=== PATIENT | female | born 1970 | race Caucasian/White ===

== ENCOUNTER 2020-07-30 13:34 | Observation (INO) | payer MEDICAID, SELFPAY ==
[2020-07-30 13:35] VITALS: BP 173/93; PULSE 78; RESP 18; TEMP 36.6; O2SAT 100; BMI 29.2
--- NOTE | 2020-07-30 13:47 | ED.VIS.GEN ---
History of Present Illness Chief Complaint: Substance Abuse Detail of Chief Complaint: Alcoholism and depression Informant: Patient Onset: Month(s) Context: - - Please read HPI Timing: Intermittent - Please read HPI Quality: Beverage of choice is beer Location: Not applicable Current Severity: Moderate Maximum Severity: Severe Worsened by: Unemployment, no housing, unable to see children unsupervised Relieved by: Nothing Associated Symptoms: Depression without suicidal ideation Narrative: Patient is a 50-year-old woman who was sent to the emergency department by Baldemar Davidson at [facility]. She states she began drinking at the age of 16. She was able to stop on her own October 22, 2019. She resumed drinking July 13. She has been drinking heavily the past 5 days. Her last drink was 1 hour prior to presentation. She is frustrated because of Covid . She states it is difficult for her to have housing, job and to see her children. She states she sees her children once a week. She has supervised visitation only. She states this is because she has no housing. She denies fever, chills or night sweats. Denies cardiac respiratory symptoms. Denies infectious symptoms. She denies nausea, vomit diarrhea. Denies black or maroon stool. Denies bruising easily. She denies neurologic symptoms. She denies urologic symptoms. Prior similar symptoms: Yes Recent Illness/Hospitalization: No - Past Medical History (1) History of depression Status: Acute (2) Alcoholism /alcohol abuse Status: Acute Past Medical History - Allergies and Home Meds Allergies/Adverse Reactions: Allergies No Known Allergies Allergy (Verified 07/30/20 13:37) Prior records reviewed: Yes Surgical History: noncontributory Lives: Alone Smoking Status: Current every day smoker Alcohol: Heavy Drugs: None Review of Systems General: Reports: Malaise. Denies: Chills, Fever, Subjective, Sweats, Weight loss, - Eyes: Denies: Visual changes - bilaterally, Blurred Vision - bilaterally ENT: Denies: Rhinorrhea, Sore throat Cardiovascular: Denies: Chest pain, Palpitations Respiratory: Denies: Dyspnea, Cough, Dyspnea on exertion Gastrointestinal: Denies: Abdominal pain, Nausea, Vomiting, Diarrhea, Melena, Hematochezia Genitourinary: Denies: Dysuria, Hematuria, Frequency Musculoskeletal: Denies: Myalgias, Arthralgias, Neck pain, Back pain, Swelling, Extremity Pain, -, - Neurological: Denies: Headache, Weakness Psych: Reports: Depression. Denies: Suicidal thoughts, Suicidal ideations Hematologic: Denies: Easy bruising, Easy bleeding Physical Exam Vital Signs/Narrative: Vital Signs Temp Pulse Resp BP Pulse Ox 07/30/20 13:35 97.9 F 78 18 173/93 H 100 General: Well nourished, Well developed Head: Normocephalic, Atraumatic Eyes: Perrl, EOMI. Negative for: Pale conjunctiva, Scleral icterus ENT: Moist mucous membranes, No rhinorrhea Neck: Supple, Nontender, No lymphadenopathy, No JVD Cardiovascular: Regular rate, Regular rhythm, No murmurs, Normal S1, Normal S2 Respiratory: No distress, CTA bilaterally, Chest nontender Abdomen: Soft, Nontender, Nondistended, Normal bowel sounds Extremities: Nontender, No edema Skin: Normal color, No rash Neurological: Alert, Oriented x3, Cranial nerves II-XII grossly intact, Normal Strength, Normal Sensation Psychological: Depressed, Tearful Diagnostic/Tx/Re-eval - Medical Decision Making Labs for addiction medicine admission were ordered. Case was discussed with case management. Plan is to call hospitalist for admission. Test results are pending. Test results will be followed up by hospitalist. Plan is admission for alcoholism/detox. ED Disposition - Plan for ED Patient: Disposition: Home or Assisted Living Diagnosis: Alcoholism /alcohol abuse, Admitted to alcohol detoxification center
[2020-07-30] MEDS: Ondansetron ODT 4 MG Tablet PO (14:11)
[2020-07-30 14:14] VITALS: BP 170/92; PULSE 92; RESP 16; TEMP 36.6; O2SAT 98
[2020-07-30 14:15] VITALS: BMI 29.2
--- NOTE | 2020-07-30 14:25 | CM.ED ---
SOCIAL WORK Informant: Dr. Farmer Reason for Consult: Substance Abuse Chief Compliant: Patient requesting detox from alcohol Met with patient in room. Introduced role and reason for referral. Patient states is connected with [facility] and is living in sober living housing. Patient reports relapsed July 13 and informed staff at [facility]. Patient reports at that time, only had one drink. Patient states over the last 5 days has been binge drinking. Patient reports last drink was 3 hours ago. Patient states, once I throw up I feel better, then I drink again. Patient requesting detox. Collaboration with Dr. Farmer, hospitalist has been paged. Call to [facility] Treatment Navigator to update on patient. Per Jahaira, will be in tomorrow to complete assessment. 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
[2020-07-30 14:31] LABS: Amphetamine Urine VISTA NEGATIVE (<1000 ng/mL); Barbiturate Urine VISTA NEGATIVE (< 200 ng/mL); Benzodiazepine Urine VISTA NEGATIVE (< 200 ng/mL); Cocaine Urine VISTA NEGATIVE (< 300 ng/mL); Ecstacy Urine VISTA NEGATIVE (< 500 ng/mL); Methadone Urine VISTA NEGATIVE (< 300 ng/mL); PCP Urine VISTA NEGATIVE (< 25 ng/mL); THC Urine VISTA NEGATIVE (< 50 ng/mL); Vista UDS pH Range 6
[2020-07-30 14:36] LABS: ALB/GLOB Ratio 1.2 RATIO (0.9-2.4); AST(SGOT) 155 U/L (15-37); Alanine Aminotransfer ALT/SGPT 95 U/L (13-56); Albumin, Serum 4.2 g/dL (3.2-5.0); Alkaline Phosphatase 113 U/L (45-117); Anion Gap 7 (5-15); BUN 15 mg/dL (7-18); BUN/Creat Ratio 18.9 RATIO (10-20); Calcium,Total 8.7 mg/dL (8.5-10.1); Chloride 105 mmol/L (98-107); Creatinine, Serum 0.79 mg/dL (0.55-1.02); EST Glomerular Filtration Rate 82 mL/min (>60); Est Glom Filt Rate - Afr Amer 99 mL/min (>60); Estimated Creatinine Clearance 74.39 ml/min; Globulin 3.4 g/dL (2.2-4.2); Glucose 148 mg/dL (74-106); Potassium 3.5 mmol/L (3.5-5.1); Protein, Total 7.6 g/dL (6.4-8.2); Sodium Level 138 mmol/L (136-145)
--- NOTE | 2020-07-30 14:36 | PCM.HP.STD ---
<Riley Cameron PA - Last Filed: 07/30/20 14:36> Problem List (1) Alcohol withdrawal Status: Acute (2) Bipolar 1 disorder Status: Chronic History of Present Illness Date of Admission: 07/30/20 Chief Complaint: alcohol withdrawal The patient is a 50 year old F with pmhx of Bipolar disorder and alcoholism who presented to the emergency room with alcohol withdrawal requesting assistance with detox. The patient last went through detox in October of this year in [place] and had remained sober until approximately 5 days ago. She states she has been on a simental for about 5 days. She states she starts drinking as soon as she wakes up, drinks beer or gin and tonics, all day long. She cannot estimate how much she is currently drinking. Currently she has ongoing nausea and vomiting, mild upper extremity tremor. She has been an alcoholic since she was a teenager. She has not been smoking much due to nausea. She usually smokes a pack per day. She denies other drug use. [] Past Medical History Past Medical History (Chronic Problems): Chronic Problems Bipolar 1 disorder (Chronic) Allergies No Known Allergies Allergy (Verified 07/30/20 13:37) Home Medications: Ambulatory Orders Medication Instructions Recorded Carbamazepine [Tegretol] 200 mg PO BID 07/30/20 traZODone [Desyrel] 100 mg PO QHS 07/30/20 Surgical History: noncontributory Psychiatric History: No pertinent psych hx [employer] History: No pertinent [employer] history Lives: Alone Smoking Status: Current every day smoker Tobacco Use: Cigarettes Alcohol: Heavy Drugs: None - *Family History Paternal History Items: - - Denies history cancer, heart disease, diabetes, stroke Maternal History Items: - - Denies history of heart disease, cancer, diabetes, stroke Review of Systems Constitutional: Denies: Chills, Fever, Weight Change HEENT: Denies: Head Aches, Sinus Congestion, Sinus Drainage Cardiovascular: Denies: Chest Pain, Palpitations Respiratory: Denies: Cough, Shortness of breath at rest, Sputum production Gastrointestinal: Reports: Nausea, Vomiting. Denies: Abdominal Pain Genitourinary: Denies: Dysuria Musculoskeletal: Denies: Joint Pain, Joint Tenderness Skin: Denies: Rash, Wounds Neurological: Reports: Tremor. Denies: Focal weakness, Numbness, Tingling Psychiatric: Denies: Anxiety, Depression, Homicidal Ideations, Suicidal Ideations Hematologic/ Lymphatic: Denies: Easy Bruising, Easy Bleeding VTE Information - Inpt Only VTE Present on Admission: No VTE Mechan Device Prophylaxis: None VTE Pharm Prophylaxis ordered?: Yes Patient Problems: Active and Suspected Problems History of depression (Acute) Alcoholism /alcohol abuse (Acute) Admitted to alcohol detoxification center (Acute) Alcohol withdrawal (Acute) - Physical Exam Vitals/I&O's: Vital Signs Temp Pulse Resp BP Pulse Ox 97.8 F 92 16 170/92 H 98 07/30/20 14:14 07/30/20 14:14 07/30/20 14:14 07/30/20 14:14 07/30/20 14:14 Oxygen Delivery Method Room Air Weight: 170 lb Body Mass Index (BMI) 29.2 General: Alert, Oriented x3, Cooperative HEENT: Atraumatic, PERRLA, EOMI, Normocephalic Neck: Supple, No JVD, Negative Carotid Bruits Lungs: Clear to auscultation, Normal air movement Cardiovascular: Regular rate, No murmurs Abdomen: Bowel Sounds Present, Soft, Non Tender Extremities: No edema, Capillary Refill Less than 3 Seconds Skin: No rashes, No breakdown Musculoskeletal: No Tenderness to Palpation of Joints or Extremities Neurological: Cranial nerves II-XII grossly intact, - - mild upper ext resting tremor Psych/Mental Status: Normal Affect, Appropriate, Alert and oriented to time, place, person, mood and affect Laboratory Results 07/30/20 14:00: Sodium 138, Potassium 3.5, Chloride 105, Carbon Dioxide 26.0, Anion Gap 7, BUN 15, Creatinine 0.79, Estim Creat Clear Calc 74.39, Est GFR (MDRD) Af Amer 99, Est GFR (MDRD) Non-Af 82, BUN/Creatinine Ratio 18.9, Glucose 148 H, Calcium 8.7, Total Bilirubin 0.80, AST 155 H, ALT 95 H, Alkaline Phosphatase 113, Total Protein 7.6, Albumin 4.2, Globulin 3.4, Albumin/Globulin Ratio 1.2 07/30/20 14:00: Ethyl Alcohol Pending 07/30/20 14:00: Urine Opiates Screen NEGATIVE, Urine Methadone Screen NEGATIVE, Ur Barbiturates Screen NEGATIVE, Ur Phencyclidine Scrn NEGATIVE, Ur Amphetamines Screen NEGATIVE, U Methamphetamin-MDMA NEGATIVE, U Benzodiazepines Scrn NEGATIVE, Urine Cocaine Screen NEGATIVE, U Cannabinoids Screen NEGATIVE, Ur Drug Screen Comment Assessment/Plan All Active Problems History of depression (Acute) Alcoholism /alcohol abuse (Acute) Admitted to alcohol detoxification center (Acute) Alcohol withdrawal (Acute) 1. Alcoholism with withdrawal - drinking heavily x 5 days. Sober since Oct 2019 otherwise. Current sx include tremor, nausea, vominting. no hx withdrawal seizure, ICU admissions. Sometimes she has auditory hallucinations. No drug use. 2. Bipolar disorder - continue home meds. 3. Nicotine abuse - 1 ppd smoker. provide patch. DVT ppx: early ambulation This patient was seen by Riley Cameron PA-C under the supervision of Doctor Cesario. <Gil Nassar F - Last Filed: 07/30/20 15:23> History of Present Illness The patient is a 50 year old F [] Past Medical History Allergies No Known Allergies Allergy (Verified 07/30/20 13:37) - Physical Exam Vitals/I&O's: Vital Signs Temp Pulse Resp BP Pulse Ox 98.7 F 62 16 145/70 H 100 07/30/20 14:51 07/30/20 14:51 07/30/20 14:51 07/30/20 14:51 07/30/20 14:51 Oxygen Delivery Method Room Air Weight: 171 lb 11.841 oz Body Mass Index (BMI) 29.5 Laboratory Results 07/30/20 14:00: Sodium 138, Potassium 3.5, Chloride 105, Carbon Dioxide 26.0, Anion Gap 7, BUN 15, Creatinine 0.79, Estim Creat Clear Calc 74.39, Est GFR (MDRD) Af Amer 99, Est GFR (MDRD) Non-Af 82, BUN/Creatinine Ratio 18.9, Glucose 148 H, Calcium 8.7, Total Bilirubin 0.80, AST 155 H, ALT 95 H, Alkaline Phosphatase 113, Total Protein 7.6, Albumin 4.2, Globulin 3.4, Albumin/Globulin Ratio 1.2 07/30/20 14:00: Ethyl Alcohol 81.0 07/30/20 14:00: Urine Opiates Screen NEGATIVE, Urine Methadone Screen NEGATIVE, Ur Barbiturates Screen NEGATIVE, Ur Phencyclidine Scrn NEGATIVE, Ur Amphetamines Screen NEGATIVE, U Methamphetamin-MDMA NEGATIVE, U Benzodiazepines Scrn NEGATIVE, Urine Cocaine Screen NEGATIVE, U Cannabinoids Screen NEGATIVE, Ur Drug Screen Comment Current Medications Dicyclomine HCl (Dicyclomine 10 Mg Capsule) 20 mg PO Q6H PRN PRN PRN Reason: abdominal discomfort Last Admin: 07/30/20 15:15 Dose: 20 mg Documented by: Folic Acid (Folic Acid 1 Mg Tablet) 1 mg PO DAILY@0800 [facility] Gabapentin (Gabapentin 300 Mg Capsule) 300 mg PO Q8H PRN PRN PRN Reason: moderate to severe anxiety Last Admin: 07/30/20 15:14 Dose: 300 mg Documented by: Hydroxyzine Pamoate (Hydroxyzine Kayley 25 Mg Capsule) 50 mg PO Q4H PRN PRN PRN Reason: mild anxiety Loperamide HCl (Loperamide 2 Mg Capsule) 2 mg PO Q4H PRN PRN PRN Reason: LOOSE STOOLS Ondansetron HCl (Ondansetron 8 Mg Tablet) 8 mg PO Q8H PRN PRN PRN Reason: NAUSEA Phenobarbital (Phenobarbital 32.4 Mg Tablet) 97.2 mg PO Q4H [facility]; Taper Stop: 08/03/20 22:59 Last Admin: 07/30/20 15:14 Dose: 97.2 mg Documented by: Sodium Chloride (0.9% Saline Lock 10 Ml Syringe) 10 - 40 ml IV UD PRN PRN Reason: SALINE FLUSH Thiamine HCl (Thiamine Hydrochloride 100 Mg Tablet) 100 mg PO DAILYCM [facility] Trazodone HCl (Trazodone 100 Mg Tablet) 100 mg PO QHS PRN PRN Reason: INSOMNIA Addendum: Dr. Nassar I personally examined the patient and reviewed the chart. I agree with the above. 50-year-old female who has been an alcoholic since a teenager presents after going on a 5-day simental. She was in detox in October and had been clean since however she also history of her children amputated toe it is been difficult for her to be able to even see her kids, she only sees him once a week and for supervised visitation only. She started drinking heavily about 5 days ago and she can even quantify how much but she says it starts as soon as she wakes up until she goes to bed. She called [facility] prior to arrival and they recommended that she come in for detox. We will plan for alcohol detox and discharge to [facility] when stable. Inpatient E&M: 44231 Init Hosp L2
[2020-07-30 14:50] VITALS: BMI 29.5
[2020-07-30 14:51] VITALS: BP 145/70; PULSE 62; RESP 16; TEMP 37.1; O2SAT 100
--- NOTE | 2020-07-30 14:59 | NURSING ---
pt states i have been on a simental since Sunday- i cant really tell you what i was drinking or how much i have been drinking because i either had a drink in my hand or was passed out. pt states [facility]. states i haven't had any of my mood stabilizers either in the last 5 days.
[2020-07-30] MEDS: Phenobarbital 32.4 MG Tablet PO ×3 (15:14→22:36)
[2020-07-30] MEDS: Gabapentin 300 MG Capsule PO (15:14)
[2020-07-30] MEDS: Dicyclomine 10 MG Capsule 20 MG PO ×2 (15:15→22:35)
[2020-07-30 15:53] LABS: Carbamazepine (Tegretol) 0.7 ug/mL (4.0-12.0)
[2020-07-30 17:25] VITALS: BP 125/81; PULSE 68; RESP 18; TEMP 36.7; O2SAT 99
[2020-07-30] MEDS: proMETHazine 25 MG/ML Syringe 6.25 MG IM (17:28)
[2020-07-30 22:00] VITALS: BP 141/86; PULSE 80; RESP 16; TEMP 37; O2SAT 97
[2020-07-30] MEDS: traZODone 100 MG Tablet PO (22:36)
[2020-07-31 02:30] VITALS: BP 134/79; PULSE 55; RESP 16; TEMP 37.1; O2SAT 98
[2020-07-31] MEDS: Phenobarbital 32.4 MG Tablet PO ×6 (02:38→22:36)
[2020-07-31 06:33] VITALS: BP 144/92; PULSE 58; RESP 16; TEMP 36.4; O2SAT 98
[2020-07-31 09:20] VITALS: BP 127/84; PULSE 72; RESP 18; TEMP 37; O2SAT 98
[2020-07-31] MEDS: Folic Acid 1 MG Tablet PO (09:21)
[2020-07-31] MEDS: Thiamine Hydrochloride 100 MG Tablet PO (09:22)
--- NOTE | 2020-07-31 10:49 | PCM.PN.HOSP ---
<Riley Cameron PA - Last Filed: 07/31/20 10:49> Patient Problems: Active and Suspected Problems History of depression (Acute) Alcoholism /alcohol abuse (Acute) Admitted to alcohol detoxification center (Acute) Alcohol withdrawal (Acute) Reason for Visit: alcohol withdrawal Subjective: nausea and tremor resolved. pt c/o sweating episodes. Otherwise doing well no issues. Vitals/I&O's: Vital Signs Temp Pulse Resp BP Pulse Ox 98.6 F 72 18 127/84 H 98 07/31/20 09:20 07/31/20 09:20 07/31/20 09:20 07/31/20 09:20 07/31/20 09:20 Oxygen Delivery Method Room Air Weight: 171 lb 11.841 oz Body Mass Index (BMI) 29.5 General: Alert, Oriented x3, Cooperative HEENT: Atraumatic, PERRLA, EOMI, Normocephalic Neck: Supple, No JVD, Negative Carotid Bruits Lungs: Clear to auscultation, Normal air movement Cardiovascular: Regular rate, No murmurs Abdomen: Bowel Sounds Present, Soft, Non Tender Extremities: No edema, Capillary Refill Less than 3 Seconds Skin: No rashes, No breakdown Musculoskeletal: No Tenderness to Palpation of Joints or Extremities Neurological: Cranial nerves II-XII grossly intact Psych/Mental Status: Normal Affect, Appropriate, Alert and oriented to time, place, person, mood and affect Laboratory Results 07/30/20 14:00: Sodium 138, Potassium 3.5, Chloride 105, Carbon Dioxide 26.0, Anion Gap 7, BUN 15, Creatinine 0.79, Estim Creat Clear Calc 74.39, Est GFR (MDRD) Af Amer 99, Est GFR (MDRD) Non-Af 82, BUN/Creatinine Ratio 18.9, Glucose 148 H, Calcium 8.7, Total Bilirubin 0.80, AST 155 H, ALT 95 H, Alkaline Phosphatase 113, Total Protein 7.6, Albumin 4.2, Globulin 3.4, Albumin/Globulin Ratio 1.2 07/30/20 14:00: Ethyl Alcohol 81.0 07/30/20 14:00: Urine Opiates Screen NEGATIVE, Urine Methadone Screen NEGATIVE, Ur Barbiturates Screen NEGATIVE, Ur Phencyclidine Scrn NEGATIVE, Ur Amphetamines Screen NEGATIVE, U Methamphetamin-MDMA NEGATIVE, U Benzodiazepines Scrn NEGATIVE, Urine Cocaine Screen NEGATIVE, U Cannabinoids Screen NEGATIVE, Ur Drug Screen Comment 07/30/20 14:00: Carbamazepine 0.7 L Current Medications Dicyclomine HCl (Dicyclomine 10 Mg Capsule) 20 mg PO Q6H PRN PRN PRN Reason: abdominal discomfort Last Admin: 07/30/20 22:35 Dose: 20 mg Documented by: Folic Acid (Folic Acid 1 Mg Tablet) 1 mg PO DAILY@0800 [facility] Last Admin: 07/31/20 09:21 Dose: 1 mg Documented by: Gabapentin (Gabapentin 300 Mg Capsule) 300 mg PO Q8H PRN PRN PRN Reason: moderate to severe anxiety Last Admin: 07/30/20 15:14 Dose: 300 mg Documented by: Hydroxyzine Pamoate (Hydroxyzine Kayley 25 Mg Capsule) 50 mg PO Q4H PRN PRN PRN Reason: mild anxiety Loperamide HCl (Loperamide 2 Mg Capsule) 2 mg PO Q4H PRN PRN PRN Reason: LOOSE STOOLS Nicotine (Nicotine 21 Mg Patch) 21 mg TD DAILY [facility] Last Admin: 07/31/20 09:21 Dose: 21 mg Documented by: Ondansetron HCl (Ondansetron 8 Mg Tablet) 8 mg PO Q8H PRN PRN PRN Reason: NAUSEA Phenobarbital (Phenobarbital 32.4 Mg Tablet) 97.2 mg PO Q4H [facility]; Taper Stop: 08/03/20 22:59 Last Admin: 07/31/20 06:34 Dose: 97.2 mg Documented by: Sodium Chloride (0.9% Saline Lock 10 Ml Syringe) 10 - 40 ml IV UD PRN PRN Reason: SALINE FLUSH Thiamine HCl (Thiamine Hydrochloride 100 Mg Tablet) 100 mg PO DAILYCM [facility] Last Admin: 07/31/20 09:22 Dose: 100 mg Documented by: Trazodone HCl (Trazodone 100 Mg Tablet) 100 mg PO QHS PRN PRN Reason: INSOMNIA Last Admin: 07/30/20 22:36 Dose: 100 mg Documented by: STROKE Vital Signs/Narrative: Vital Signs Temp Pulse Resp BP Pulse Ox 07/31/20 09:20 98.6 F 72 18 127/84 H 98 Medical Necessity - Tobacco Use Smoking Status: Current every day smoker Tobacco Use: Cigarettes Assessment/Plan All Active Problems History of depression (Acute) Alcoholism /alcohol abuse (Acute) Admitted to alcohol detoxification center (Acute) Alcohol withdrawal (Acute) 1. Alcoholism with withdrawal - drinking heavily x 5 days. Sober since Oct 2019 otherwise. Current sx sweating episodes. no hx withdrawal seizure or ICU admissions. 2. Bipolar disorder - continue home meds. 3. Nicotine abuse - 1 ppd smoker. provide patch. DVT ppx: early ambulation This patient was seen by Riley Cameron PA-C under the supervision of Doctor Raman. <Jia Camargo - Last Filed: 07/31/20 14:59> Vitals/I&O's: Vital Signs Temp Pulse Resp BP Pulse Ox 98.6 F 72 18 127/84 H 98 07/31/20 09:20 07/31/20 09:20 07/31/20 09:20 07/31/20 09:20 07/31/20 09:20 Oxygen Delivery Method Room Air Weight: 171 lb 11.841 oz Body Mass Index (BMI) 29.5 Laboratory Results 07/30/20 14:00: Carbamazepine 0.7 L Current Medications Dicyclomine HCl (Dicyclomine 10 Mg Capsule) 20 mg PO Q6H PRN PRN PRN Reason: abdominal discomfort Last Admin: 07/30/20 22:35 Dose: 20 mg Documented by: Folic Acid (Folic Acid 1 Mg Tablet) 1 mg PO DAILY@0800 [facility] Last Admin: 07/31/20 09:21 Dose: 1 mg Documented by: Gabapentin (Gabapentin 300 Mg Capsule) 300 mg PO Q8H PRN PRN PRN Reason: moderate to severe anxiety Last Admin: 07/30/20 15:14 Dose: 300 mg Documented by: Hydroxyzine Pamoate (Hydroxyzine Kayley 25 Mg Capsule) 50 mg PO Q4H PRN PRN PRN Reason: mild anxiety Loperamide HCl (Loperamide 2 Mg Capsule) 2 mg PO Q4H PRN PRN PRN Reason: LOOSE STOOLS Nicotine (Nicotine 21 Mg Patch) 21 mg TD DAILY [facility] Last Admin: 07/31/20 09:21 Dose: 21 mg Documented by: Ondansetron HCl (Ondansetron 8 Mg Tablet) 8 mg PO Q8H PRN PRN PRN Reason: NAUSEA Phenobarbital (Phenobarbital 32.4 Mg Tablet) 97.2 mg PO Q4H [facility]; Taper Stop: 08/03/20 22:59 Last Admin: 07/31/20 11:49 Dose: 97.2 mg Documented by: Sodium Chloride (0.9% Saline Lock 10 Ml Syringe) 10 - 40 ml IV UD PRN PRN Reason: SALINE FLUSH Thiamine HCl (Thiamine Hydrochloride 100 Mg Tablet) 100 mg PO DAILYCM [facility] Last Admin: 07/31/20 09:22 Dose: 100 mg Documented by: Trazodone HCl (Trazodone 100 Mg Tablet) 100 mg PO QHS PRN PRN Reason: INSOMNIA Last Admin: 07/30/20 22:36 Dose: 100 mg Documented by: Assessment/Plan Patient seen by Riley Cameron PA-C under my supervision. Patient seen and examined. She has no complaints. She has been managed for acute alcohol withdrawal. Review of symptoms otherwise negative. O/E: Vital Signs Temp Pulse Resp BP Pulse Ox 98.6 F 72 18 127/84 H 98 07/31/20 09:20 07/31/20 09:20 07/31/20 09:20 07/31/20 09:20 07/31/20 09:20 General: Alert, Oriented x3, Cooperative HEENT: Atraumatic, PERRLA, EOMI, Normocephalic Neck: Supple, No JVD, Negative Carotid Bruits Lungs: Clear to auscultation, Normal air movement Cardiovascular: Regular rate, No murmurs Abdomen: Bowel Sounds Present, Soft, Non Tender Extremities: No edema, Capillary Refill Less than 3 Seconds Skin: No rashes, No breakdown Musculoskeletal: No Tenderness to Palpation of Joints or Extremities Neurological: Cranial nerves II-XII grossly intact Psych/Mental Status: Normal Affect, Appropriate, Alert and oriented to time, place, person, mood and affect Continue on alcohol withdrawal protocol with phenobarbital. Monitor CIWA score. Thiamine, folic acid and Multivite. Rest as per Riley Cameron PA-C's notes which I have reviewed and endorsed. Inpatient E&M: 41329 Subs Hosp L2
[2020-07-31 15:15] VITALS: BP 160/99; PULSE 69; RESP 16; TEMP 36.8; O2SAT 98
[2020-07-31 18:50] VITALS: BP 136/89; PULSE 91; RESP 16; TEMP 36.7; O2SAT 100
[2020-07-31 21:20] VITALS: BP 136/89; PULSE 80; RESP 18; TEMP 36.8; O2SAT 96
[2020-07-31] MEDS: traZODone 100 MG Tablet PO (22:36)
[2020-08-01] MEDS: Phenobarbital 32.4 MG Tablet PO ×6 (03:20→22:20)
[2020-08-01 03:22] VITALS: BP 118/76; PULSE 77; RESP 18; TEMP 36.2; O2SAT 98
[2020-08-01 06:34] VITALS: BP 111/72; PULSE 77; RESP 16; TEMP 36.3; O2SAT 96
[2020-08-01 10:30] VITALS: BP 134/83; PULSE 77; RESP 16; TEMP 36.4; O2SAT 99
[2020-08-01] MEDS: Folic Acid 1 MG Tablet PO (10:32)
[2020-08-01] MEDS: Thiamine Hydrochloride 100 MG Tablet PO (10:32)
[2020-08-01] MEDS: carBAMazepine 200 MG Tablet PO ×2 (10:41→22:20)
--- NOTE | 2020-08-01 10:57 | PN_ITS ---
Patient Problems: Active and Suspected Problems History of depression (Acute) Alcoholism /alcohol abuse (Acute) Admitted to alcohol detoxification center (Acute) Alcohol withdrawal (Acute) Subjective: Patient seen and examined. She has no complaints today. She tells me she has had pancreatitis in the past, and wonders if she has it again because she has been drinking copiously. She complains of minimal abdominal pain, and denies nausea, vomiting, fever or chills. Vitals/I&O's: Vital Signs Temp Pulse Resp BP Pulse Ox 97.4 F L 77 16 111/72 96 08/01/20 06:34 08/01/20 06:34 08/01/20 06:34 08/01/20 06:34 08/01/20 06:34 Oxygen Delivery Method Room Air Weight: 171 lb 11.841 oz Body Mass Index (BMI) 29.5 General: Alert, Oriented x3, Cooperative HEENT: Atraumatic, PERRLA, EOMI, Normocephalic Neck: Supple, No JVD, Negative Carotid Bruits Lungs: Clear to auscultation, Normal air movement Cardiovascular: Regular rate, No murmurs Abdomen: Bowel Sounds Present, Soft, Non Tender, no guarding or rebound tenderness Extremities: No edema, Capillary Refill Less than 3 Seconds Skin: No rashes, No breakdown Musculoskeletal: No Tenderness to Palpation of Joints or Extremities Neurological: Cranial nerves II-XII grossly intact Psych/Mental Status: Normal Affect, Appropriate, Alert and oriented to time, place, person, mood and affect Current Medications Carbamazepine (Carbamazepine 200 Mg Tablet) 200 mg PO BID [facility] Last Admin: 08/01/20 10:41 Dose: 200 mg Documented by: Dicyclomine HCl (Dicyclomine 10 Mg Capsule) 20 mg PO Q6H PRN PRN PRN Reason: abdominal discomfort Last Admin: 07/30/20 22:35 Dose: 20 mg Documented by: Folic Acid (Folic Acid 1 Mg Tablet) 1 mg PO DAILY@0800 [facility] Last Admin: 08/01/20 10:32 Dose: 1 mg Documented by: Gabapentin (Gabapentin 300 Mg Capsule) 300 mg PO Q8H PRN PRN PRN Reason: moderate to severe anxiety Last Admin: 07/30/20 15:14 Dose: 300 mg Documented by: Hydroxyzine Pamoate (Hydroxyzine Kayley 25 Mg Capsule) 50 mg PO Q4H PRN PRN PRN Reason: mild anxiety Loperamide HCl (Loperamide 2 Mg Capsule) 2 mg PO Q4H PRN PRN PRN Reason: LOOSE STOOLS Nicotine (Nicotine 21 Mg Patch) 21 mg TD DAILY [facility] Last Admin: 08/01/20 10:32 Dose: 21 mg Documented by: Ondansetron HCl (Ondansetron 8 Mg Tablet) 8 mg PO Q8H PRN PRN PRN Reason: NAUSEA Phenobarbital (Phenobarbital 32.4 Mg Tablet) 64.8 mg PO Q4H [facility]; Taper Stop: 08/03/20 22:59 Last Admin: 08/01/20 10:41 Dose: 64.8 mg Documented by: Senna/Docusate Sodium (Senna/Docusate Sodium 1 Tablet) 1 tablet PO BID PRN PRN Reason: Constipation Sodium Chloride (0.9% Saline Lock 10 Ml Syringe) 10 - 40 ml IV UD PRN PRN Reason: SALINE FLUSH Thiamine [facility] ([facility]) [facility] Last Admin: 08/01/20 10:32 Dose: 100 mg Documented by: Trazodone HCl (Trazodone 100 Mg Tablet) 100 mg PO QHS PRN PRN Reason: INSOMNIA Last Admin: 07/31/20 22:36 Dose: 100 mg Documented by: Medical Necessity - Tobacco Use Smoking Status: Current every day smoker Tobacco Use: Cigarettes Assessment/Plan All Active Problems History of depression (Acute) Alcoholism /alcohol abuse (Acute) Admitted to alcohol detoxification center (Acute) Alcohol withdrawal (Acute) # Acute alcohol withdrawal * on alcohol withdrawal protocol with phenobarbital * monitor CIWA score; CIWA score is 0 today * # Bipolar disorder: on tegretol # Nicotine patch: nicotine patch 21mg daily DVT prophylaxis: low risk, encourage ambulation Inpatient E&M: 83277 Subs Hosp L2
[2020-08-01] MEDS: Senna/Docusate Sodium 1 Tablet PO (12:55)
[2020-08-01 15:15] VITALS: BP 133/69; PULSE 76; RESP 16; TEMP 36.8; O2SAT 100
[2020-08-01] MEDS: traZODone 100 MG Tablet PO (22:20)
[2020-08-01 22:25] VITALS: BP 155/88; PULSE 74; RESP 18; TEMP 36.8; O2SAT 96
[2020-08-02] MEDS: Phenobarbital 32.4 MG Tablet PO ×4 (04:40→22:47)
[2020-08-02 04:42] VITALS: BP 115/77; PULSE 72; RESP 16; TEMP 36.5; O2SAT 97
[2020-08-02] MEDS: Folic Acid 1 MG Tablet PO (07:59)
[2020-08-02] MEDS: Thiamine Hydrochloride 100 MG Tablet PO (08:00)
[2020-08-02] MEDS: carBAMazepine 200 MG Tablet PO ×2 (09:34→21:08)
[2020-08-02 10:00] VITALS: BP 140/73; PULSE 82; RESP 18; TEMP 36.4; O2SAT 98
--- NOTE | 2020-08-02 11:47 | ADDICTION ---
This proposal writer met with patient, in her room, to finalize d/c plan. Patient reports that she plans to engage with [facility] for residential treatment but requested to speak with [facility] to find out her other options. this proposal writer attempted to process other options with patient, but she reported that she preferred to speak with a forensic social worker employed by [facility]. At this time, patient plans to directly admit into [facility] and will be transported by [facility] Peer systems support officer.
--- NOTE | 2020-08-02 13:00 | PCM.PN.HOSP ---
<Riley Cameron - Last Filed: 08/02/20 13:02> Patient Problems: Active and Suspected Problems History of depression (Acute) Alcoholism /alcohol abuse (Acute) Admitted to alcohol detoxification center (Acute) Alcohol withdrawal (Acute) Reason for Visit: alcohol withdrawal Subjective: No tremor. Some increased heavy sweating and anxiety overnight. Pt planning to stay one more night. Vitals/I&O's: Vital Signs Temp Pulse Resp BP Pulse Ox 97.5 F L 82 18 140/73 H 98 08/02/20 10:00 08/02/20 10:00 08/02/20 10:00 08/02/20 10:00 08/02/20 10:00 Oxygen Delivery Method Room Air Weight: 171 lb 11.841 oz Body Mass Index (BMI) 29.5 General: Alert, Oriented x3, Cooperative HEENT: Atraumatic, PERRLA, EOMI, Normocephalic Neck: Supple, No JVD, Negative Carotid Bruits Lungs: Clear to auscultation, Normal air movement Cardiovascular: Regular rate, No murmurs Abdomen: Bowel Sounds Present, Soft, Non Tender Extremities: No edema, Capillary Refill Less than 3 Seconds Skin: No rashes, No breakdown Musculoskeletal: No Tenderness to Palpation of Joints or Extremities Neurological: Cranial nerves II-XII grossly intact Psych/Mental Status: Normal Affect, Appropriate, Alert and oriented to time, place, person, mood and affect Current Medications Carbamazepine (Carbamazepine 200 Mg Tablet) 200 mg PO BID [facility] Last Admin: 08/02/20 09:34 Dose: 200 mg Documented by: Dicyclomine HCl (Dicyclomine 10 Mg Capsule) 20 mg PO Q6H PRN PRN PRN Reason: abdominal discomfort Last Admin: 07/30/20 22:35 Dose: 20 mg Documented by: Folic Acid (Folic Acid 1 Mg Tablet) 1 mg PO DAILY@0800 [facility] Last Admin: 08/02/20 07:59 Dose: 1 mg Documented by: Gabapentin (Gabapentin 300 Mg Capsule) 300 mg PO Q8H PRN PRN PRN Reason: moderate to severe anxiety Last Admin: 07/30/20 15:14 Dose: 300 mg Documented by: Hydroxyzine Pamoate (Hydroxyzine Kayley 25 Mg Capsule) 50 mg PO Q4H PRN PRN PRN Reason: mild anxiety Loperamide HCl (Loperamide 2 Mg Capsule) 2 mg PO Q4H PRN PRN PRN Reason: LOOSE STOOLS Nicotine (Nicotine 21 Mg Patch) 21 mg TD DAILY [facility] Last Admin: 08/02/20 09:34 Dose: 21 mg Documented by: Ondansetron HCl (Ondansetron 8 Mg Tablet) 8 mg PO Q8H PRN PRN PRN Reason: NAUSEA Phenobarbital (Phenobarbital 32.4 Mg Tablet) 64.8 mg PO Q6H [facility]; Taper Stop: 08/03/20 22:59 Last Admin: 08/02/20 11:03 Dose: 64.8 mg Documented by: Senna/Docusate Sodium (Senna/Docusate Sodium 1 Tablet) 1 tablet PO BID PRN PRN Reason: Constipation Last Admin: 08/01/20 12:55 Dose: 1 tablet Documented by: Sodium Chloride (0.9% Saline Lock 10 Ml Syringe) 10 - 40 ml IV UD PRN PRN Reason: SALINE FLUSH Thi[facility] ([facility] Admin: 08/02/20 08:00 Dose: 100 mg Documented by: Trazodone HCl (Trazodone 100 Mg Tablet) 100 mg PO QHS PRN PRN Reason: INSOMNIA Last Admin: 08/01/20 22:20 Dose: 100 mg Documented by: STROKE Vital Signs/Narrative: Vital Signs Temp Pulse Resp BP Pulse Ox 08/02/20 10:00 97.5 F L 82 18 140/73 H 98 Medical Necessity - Tobacco Use Smoking Status: Current every day smoker Tobacco Use: Cigarettes Assessment/Plan All Active Problems History of depression (Acute) Alcoholism /alcohol abuse (Acute) Admitted to alcohol detoxification center (Acute) Alcohol withdrawal (Acute) 1. Alcoholism with withdrawal - drinking heavily x 5 days. Sober since Oct 2019 otherwise. Increased sweating and anxiety - plan to monitor overnight. Should complete phenobarbital today. 2. Bipolar disorder - continue home meds. 3. Nicotine abuse - 1 ppd smoker. provide patch. DVT ppx: early ambulation This patient was seen by Rliey Cameron PA-C under the supervision of Doctor Raman. <Jia Camargo - Last Filed: 08/02/20 13:37> Vitals/I&O's: Vital Signs Temp Pulse Resp BP Pulse Ox 97.5 F L 82 18 140/73 H 98 08/02/20 10:00 08/02/20 10:00 08/02/20 10:00 08/02/20 10:00 08/02/20 10:00 Oxygen Delivery Method Room Air Weight: 171 lb 11.841 oz Body Mass Index (BMI) 29.5 Current Medications Carbamazepine (Carbamazepine 200 Mg Tablet) 200 mg PO BID [facility] Last Admin: 08/02/20 09:34 Dose: 200 mg Documented by: Dicyclomine HCl (Dicyclomine 10 Mg Capsule) 20 mg PO Q6H PRN PRN PRN Reason: abdominal discomfort Last Admin: 07/30/20 22:35 Dose: 20 mg Documented by: Folic Acid (Folic Acid 1 Mg Tablet) 1 mg PO DAILY@0800 [facility] Last Admin: 08/02/20 07:59 Dose: 1 mg Documented by: Gabapentin (Gabapentin 300 Mg Capsule) 300 mg PO Q8H PRN PRN PRN Reason: moderate to severe anxiety Last Admin: 07/30/20 15:14 Dose: 300 mg Documented by: Hydroxyzine Pamoate (Hydroxyzine Kayley 25 Mg Capsule) 50 mg PO Q4H PRN PRN PRN Reason: mild anxiety Loperamide HCl (Loperamide 2 Mg Capsule) 2 mg PO Q4H PRN PRN PRN Reason: LOOSE STOOLS Nicotine (Nicotine 21 Mg Patch) 21 mg TD DAILY [facility] Last Admin: 08/02/20 09:34 Dose: 21 mg Documented by: Ondansetron HCl (Ondansetron 8 Mg Tablet) 8 mg PO Q8H PRN PRN PRN Reason: NAUSEA Phenobarbital (Phenobarbital 32.4 Mg Tablet) 64.8 mg PO Q6H [facility]; Taper Stop: 08/03/20 22:59 Last Admin: 08/02/20 11:03 Dose: 64.8 mg Documented by: Senna/Docusate Sodium (Senna/Docusate Sodium 1 Tablet) 1 tablet PO BID PRN PRN Reason: Constipation Last Admin: 08/01/20 12:55 Dose: 1 tablet Documented by: Sodium Chloride (0.9% Saline Lock 10 Ml Syringe) 10 - 40 ml IV UD PRN PRN Reason: SALINE FLUSH Thiamine HCl ([facility]iamine Hydrochloride 100 Mg Tablet) [facility] Last Admin: 08/02/20 08:00 Dose: 100 mg Documented by: Trazodone HCl (Trazodone 100 Mg Tablet) 100 mg PO QHS PRN PRN Reason: INSOMNIA Last Admin: 08/01/20 22:20 Dose: 100 mg Documented by: STROKE Vital Signs/Narrative: Vital Signs Temp Pulse Resp BP Pulse Ox 08/02/20 10:00 97.5 F L 82 18 140/73 H 98 Assessment/Plan Patient seen by Riley Cameron PA-C under my supervision Patient seen and examined. She complained of increased sweating overnight. Review of systems is otherwise negative. She wants to stay one more day. o/E: Vital Signs Temp Pulse Resp BP Pulse Ox 97.5 F L 82 18 140/73 H 98 08/02/20 10:00 08/02/20 10:00 08/02/20 10:00 08/02/20 10:00 08/02/20 10:00 General: Alert, Oriented x3, Cooperative HEENT: Atraumatic, PERRLA, EOMI, Normocephalic Neck: Supple, No JVD, Negative Carotid Bruits Lungs: Clear to auscultation, Normal air movement Cardiovascular: Regular rate, No murmurs Abdomen: Bowel Sounds Present, Soft, Non Tender, no guarding or rebound tenderness Extremities: No edema, Capillary Refill Less than 3 Seconds Skin: No rashes, No breakdown Musculoskeletal: No Tenderness to Palpation of Joints or Extremities Neurological: Cranial nerves II-XII grossly intact Psych/Mental Status: Normal Affect, Appropriate, Alert and oriented to time, place, person, mood and affect Plan is to continue alcohol withdrawal protocol with phenobarbital. Monitor CIWA score. For likely dc home tomorrow Rest as per Riley Cameron PA-C's note, which I have reviewed and endorsed. Inpatient E&M: 98322 Subs Hosp L2
--- NOTE | 2020-08-02 15:00 | CASEMGMT ---
Social Work Note [facility] to speak with [facility] SW. [facility]IZE [facility] that [facility] will be at [facility] tomorrow at 11:00am to transport pt directly to residential. SW in to speak with pt. SW introduced self and role at [facility]. Pt is alert and orientated. Pt states she has been involved with CPS for about a year now and she see's her two children (two son's) once a week for supervised visits. Pt states I checked myself in to this and volunteered myself to get treatment and I am just frustrated. Pt states Oanh has lack of support. Pt states that she has been to treatment in [place] before and they had good support for her. Pt states she has been through two new people with CPS, new housing assistant, and has no hope when it comes to housing. Pt states that she is homeless and CPS case is dependency case. Pt states she was living in [place] but her , of 12 years, moved her to [place]. Pt states her mom and dad, family, friends are all out in [place]. Pt states it is just frustrating and the frustration leads me to want to drink and smoke. Pt states I see commercials on TV for alcohol and I think oh that looks good. Pt states I need the Vivitrol shot for my cravings. SW asked pt if she spoke with Elvi through [facility] about this and pt confirms. Pt states she was living in [facility]'s sober living house since April 20 and pt is not sure if she needs residential treatment at this time. Pt stated she could do IOP, outpatient counseling. SW spoke with pt about being homeless though and how if pt goes to residential, that would give pt the treatment that she needs but also a place to stay and [facility] could continue to assist pt with housing. SW spoke with pt about the treatment process and how getting housing is also a process and how [facility] should be able to assist with that process and provide pt with the support that she needs. Pt states she has signed up with [employer] and her CPS worker needs to complete a eligible worksheet for [employer]. Pt also mentioned getting a sponsor and states she is linked up with Peer Support. SW spent much time with pt offering support and encouraged pt to follow through with recommendations of residential and admit to residential tomorrow. SW spoke with pt about good choices pt has made up to this point and how things are processes and take time. Pt states that the goal is for reunification with her children and to have her own place. ALIZE updated pt that [facility] will be at [facility] tomorrow at 11:00am to transport pt directly to residential. Pt asked about other options for treatment including marni based options. SW provided pt with additional treatment options, AA meetings, local Churches and [facility] Based treatment options. Pt thanked this worker, denied additional needs or concerns at this time. ALIZE updated RN on transportation time for tomorrow. Plan[facility] directly to residential tomorrow at 11:00am Melly Winn NEONATAL SPECIALIST, RESOURCE MANAGEMENT SPECIALIST
[2020-08-02 16:07] VITALS: BP 131/100; PULSE 68; RESP 18; TEMP 36.8; O2SAT 98
[2020-08-02] MEDS: hydrOXYzine PAM 25 MG Capsule 50 MG PO (21:08)
[2020-08-02] MEDS: traZODone 100 MG Tablet PO (22:47)
[2020-08-02 22:50] VITALS: BP 140/79; PULSE 87; RESP 16; TEMP 36.1; O2SAT 94
[2020-08-03 04:45] VITALS: BP 119/79; PULSE 62; RESP 16; TEMP 36.6; O2SAT 94
[2020-08-03] MEDS: Phenobarbital 32.4 MG Tablet PO ×2 (04:52→10:38)
[2020-08-03] MEDS: Folic Acid 1 MG Tablet PO (07:58)
[2020-08-03] MEDS: Thiamine Hydrochloride 100 MG Tablet PO (07:58)
[2020-08-03 08:59] VITALS: BP 136/98; PULSE 75; RESP 16; TEMP 36.9; O2SAT 98
--- NOTE | 2020-08-03 10:19 | ADDICTION ---
This creative writer met with patient in her room to finalize d/c plan. Patient to be picked up by [facility] staff and will be taken to [facility] direct [facility]. She is amiable to this plan.
[2020-08-03] MEDS: carBAMazepine 200 MG Tablet PO (10:37)
--- NOTE | 2020-08-03 11:10 | DCINST_ITS ---
- Discharge Diagnoses Current Active Problems: Current Active and Chronic Problems History of depression (Acute) Alcoholism /alcohol abuse (Acute) Admitted to alcohol detoxification center (Acute) Bipolar 1 disorder (Chronic) Alcohol withdrawal (Acute) You will use the following diet at home:: Other - no alcohol whatsoever Your food should be the consistency of: Regular Your liquids should be the consistency of: Regular/Thin Discharge Activity: Return to Normal Activity Allergies/Adverse Reactions: Allergies No Known Allergies Allergy (Verified 07/30/20 13:37) Medications to take at Discharge Carbamazepine [Tegretol] 200 mg PO BID 07/30/20 traZODone [Desyrel] 100 mg PO QHS 07/30/20 Primary Care Physician: Care Physician,No Primary [Primary Care Provider] - Please follow up with your Primary Care Physician in: 1-2 weeks Test Results: Test results from this visit will be discussed in further detail at your follow- up appointment, if applicable. Please Follow Up With: [facility] program When: Today Proposed Discharge Date: 08/03/20
[2020-08-03 11:11] VITALS: BP 128/78; PULSE 74; RESP 18; TEMP 36.9; O2SAT 98
--- NOTE | 2020-08-03 15:11 | DS.PCM_ITS ---
<Riley Cameron - Last Filed: 08/03/20 15:11> Discharge Date and Diagnosis - Problem List Patient Problems: Active and Suspected Problems History of depression (Acute) Alcoholism /alcohol abuse (Acute) Admitted to alcohol detoxification center (Acute) Alcohol withdrawal (Acute) Date of Admission: 07/30/20 Date of Discharge: 08/03/20 - Primary Discharge Diagnosis Acute Problems: Active Problems Alcoholism with acute withdrawal Bipolar 1 - Secondary Discharge Diagnosis Chronic Problems: Chronic Problems Bipolar 1 disorder (Chronic) Hospital Course and Treatment Operations: None Procedures: None Summary of Care Provided: Hospital Course: The patient is a 50 year old F with past medical history of alcoholism, bipolar disorder, presented to emergency room with alcohol withdrawal requesting assistance with detox. Patient had been started binge drinking about 5 days prior and was drinking all day long both beer and liquor, she was not sure how much she was drinking. She was placed on phenobarbital taper. She tolerated the taper well. On the last day she had increased sweating and anxiety and was kept one additional night. Her symptoms resolved. She was discharged home in stable condition. She will follow up with 180 today and with her PCP in 1-2 weeks. This patient was seen by Riley Cameron PA-C under the supervision of Dr. Camargo[] Patient Problems: Active and Suspected Problems History of depression (Acute) Alcoholism /alcohol abuse (Acute) Admitted to alcohol detoxification center (Acute) Alcohol withdrawal (Acute) - Physical Exam Vitals/I&O's: Vital Signs Temp Pulse Resp BP Pulse Ox 98.5 F 74 18 128/78 H 98 08/03/20 11:11 08/03/20 11:11 08/03/20 11:11 08/03/20 11:11 08/03/20 11:11 Oxygen Delivery Method Room Air Weight: 171 lb 11.841 oz Body Mass Index (BMI) 29.5 General: Alert, Oriented x3, Cooperative HEENT: Atraumatic, PERRLA, EOMI, Normocephalic Neck: Supple, No JVD, Negative Carotid Bruits Lungs: Clear to auscultation, Normal air movement Cardiovascular: Regular rate, No murmurs Abdomen: Bowel Sounds Present, Soft, Non Tender Extremities: No edema, Capillary Refill Less than 3 Seconds Skin: No rashes, No breakdown Musculoskeletal: No Tenderness to Palpation of Joints or Extremities Neurological: Cranial nerves II-XII grossly intact Psych/Mental Status: Normal Affect, Appropriate, Alert and oriented to time, place, person, mood and affect Discharge Diet: Low fat/ Low Cholesterol, 2000 mg Sodium Diet Discharge Activity: Return to Normal Activity Home Medications: Medications to take at Discharge Carbamazepine [Tegretol] 200 mg PO BID 07/30/20 traZODone [Desyrel] 100 mg PO QHS 07/30/20 Primary Care Physician: Care Physician,No Primary [Primary Care Provider] - Please follow up with your Primary Care Physician in: 1-2 weeks Please Follow Up With: [facility] When: Today Disposition: Home Minutes spent on discharge:: 35 Patient Condition:: Stable Medical Necessity - Tobacco Use Smoking Status: Current every day smoker Tobacco Use: Cigarettes Meaningful Use Info Meaningful Use Diagnoses (Choose all that apply): None applicable <RamanJia Pierson - Last Filed: 08/03/20 15:32> Discharge Date and Diagnosis - Primary Discharge Diagnosis Acute Problems: Active Problems History of depression (Acute) Alcoholism /alcohol abuse (Acute) Admitted to alcohol detoxification center (Acute) Alcohol withdrawal (Acute) - Secondary Discharge Diagnosis Chronic Problems: Chronic Problems Bipolar 1 disorder (Chronic) Hospital Course and Treatment Summary of Care Provided: Patient seen by Riley Cameron PA-C under my supervision The patient is a 50 year old F with a past medical history of alcohol dependence and bipolar disorder who was admitted through the ED with a complaint of acute alcohol withdrawal. She was admitted and managed for acute alcohol withdrawal. Patient states she had been clean for 2 months but started binge drinking about 5 days prior to admission and was drinking all day long. She was placed on the phenobarbital withdrawal protocol and tolerated the detox process well. She was discharged home on 08/03/2020 and is to follow-up with [facility] rehab [facility] on outpatient basis and also with her PCP. Patient seen and examined prior to discharge. She had no complaints and felt well and was eager to be discharged. Review of symptoms otherwise negative. Labs and vitals reviewed. Home medication reviewed and reconciled. O/E: Vital Signs Temp Pulse Resp BP Pulse Ox 98.5 F 74 18 128/78 H 98 08/03/20 11:11 08/03/20 11:11 08/03/20 11:11 08/03/20 11:11 08/03/20 11:11 [] General: Alert, Oriented x3, Cooperative HEENT: Atraumatic, PERRLA, EOMI, Normocephalic Neck: Supple, No JVD, Negative Carotid Bruits Lungs: Clear to auscultation, Normal air movement Cardiovascular: Regular rate, No murmurs Abdomen: Bowel Sounds Present, Soft, Non Tender, no guarding or rebound tenderness Extremities: No edema, Capillary Refill Less than 3 Seconds Skin: No rashes, No breakdown Musculoskeletal: No Tenderness to Palpation of Joints or Extremities Neurological: Cranial nerves II-XII grossly intact Psych/Mental Status: Normal Affect, Appropriate, Alert and oriented to time, place, person, mood and affect Plan is for discharge home today. Rest as per Riley Cameron PA-C's note, which I have reviewed and endorsed. - Physical Exam Vitals/I&O's: Vital Signs Temp Pulse Resp BP Pulse Ox 98.5 F 74 18 128/78 H 98 08/03/20 11:11 08/03/20 11:11 08/03/20 11:11 08/03/20 11:11 08/03/20 11:11 Oxygen Delivery Method Room Air Weight: 171 lb 11.841 oz Body Mass Index (BMI) 29.5 Inpatient E&M: [id number] Disch Hosp
== END 2020-08-03 11:45 | disposition home or self-care (01) | DRG 775 ==
LOC: ED 14:25 → MS3 14:57
PROVIDERS: Physician Assistant; Admitting Provider Family Medicine; Emergency Provider Emergency Medicine; Visit Provider Student in an Organized Health Care Education/Training Program
DX: F10.239 Alcohol dependence with withdrawal, unspecified (principal); Y90.9 Presence of alcohol in blood, level not specified; F31.9 Bipolar disorder, unspecified; F41.9 Anxiety disorder, unspecified; F17.210 Nicotine dependence, cigarettes, uncomplicated; Z59.0 Homelessness; Z56.0 Unemployment, unspecified
CPT/HCPCS: 80053; 80156; 80307; 80320; 96372; 99218; 99283; 99406; G0378; G0480

== ENCOUNTER 2021-05-27 16:25 | Inpatient (IN) | payer MEDICAID, SELFPAY ==
[2021-05-27 16:28] VITALS: BP 137/93; PULSE 106; RESP 18; TEMP 36.1; O2SAT 95; BMI 33.8
--- NOTE | 2021-05-27 18:30 | EDS_ITS ---
HPI History of Present Illness Chief Complaint: Substance Abuse Detail of Chief Complaint: Alcohol addiction Informant: patient Onset/Context/Timing Onset: Days (Consuming 24-48 white claws per day the last 5 days) Current Severity: Mild Maximum Severity: Moderate Worsened by: Decreased alcohol consumption Relieved by: Drinking alcoholic beverage Associated Symptoms Associated Symptoms: Tremors, abdominal pain with nausea Narrative Narrative: Patient is a 51-year-old woman history of alcoholism and drug addiction. She states she has not used drugs in 22 months. Last detox was 1 year ago. She has been in detox at this facility once. She is undergone detox 4 times. Her alcohol consumption increased after the recent of her mother. She denies black or maroon-colored stool. She denies hematemesis. She denies cardiac or respiratory symptoms. She states if she does not drink she started to have tremors and feels palpitations. Prior similar symptoms: Yes Recent Illness/Hospitalization: No PFSH PFSH Home Medications carbamazepine 200 mg PO BID 07/30/20 [History Last Taken 07/25/20] trazodone 100 mg PO QHS 07/30/20 [History Last Taken 07/25/20] Allergy/AdvReac Type Severity Reaction Status Date / Time No Known Allergies Allergy Verified 05/27/21 16:30 Social History (Updated 05/27/21 @ 18:[address] Rafa Farmer MD) household members: none Smoking Status: Current every day smoker tobacco type: cigarettes alcohol intake: current details: 24-48 white claws per day substance use type: former substance user ROS ROS ED Constitutional Constitutional ED: Denies chills, fever(s), subjective, sweats or weight loss Eyes Eyes: Denies blurry vision, change in vision or diplopia ENT ENT ED: Denies ear pain, rhinorrhea or sore throat Cardiovascular Cardiovascular: Reports palpitations; Denies chest pain or racing heartbeat Respiratory/Chest Respiratory/Chest: Denies cough, dyspnea or dyspnea on exertion Gastrointestinal Gastrointestinal: Reports nausea; Denies abdominal pain, diarrhea, melena or vomiting Genitourinary Genitourinary ED: Denies dysuria, hematuria or urinary frequency Musculoskeletal Musculoskeletal: Denies arthralgias, myalgias or neck pain Integumentary Denies rash Neurologic Neurologic: Reports weakness; Denies headache(s) or paresthesias Psychiatric Psychiatric: Reports depression; Denies suicidal thoughts Endocrine Endocrinology: Denies polydipsia, polyphagia or polyuria EXAM Physical Exam Const Vital Signs: 05/27/21 16:28 Temperature 97.0 F L Temperature Source Temporal Pulse Rate 106 H Respiratory Rate 18 Blood Pressure 137/93 H Blood Pressure Mean 107 Pulse Ox 95 Oxygen Delivery Method Room Air Positive well nourished, well developed and obese General Appearance ED: well developed Nutritional Appearance: obese HEENT HEENT Narrative: Head is atraumatic normocephalic. Ears normal. Nares patent. Posterior para shot erythema or exudate. Eyes PERRL and EOMs intact bilaterally General Eye ED: Negative for pale conjunctiva or scleral icterus Neck no lymphadenopathy, supple and no JVD Chest Wall inspection of chest normal Resp normal respiratory effort and clear to auscultation bilaterally Cardio regular rhythm, S1 normal heart sound, S2 normal heart sound and no murmurs Rate: tachycardic GI normal to inspection, nondistended, normoactive bowel sounds, non-tender and non-distended Palpation: soft Back/Spine no CVA tenderness Cervical Spine: Negative for cervical spine tenderness Thoracic Spine / Upper Back: Negative for thoracic spinal tenderness or paraspinal muscle tenderness Extremity normal to inspection General Extremety ED: Negative for edema or tenderness General Extremity: Negative for edema Neuro oriented x3, CN's II-XII intact bilaterally and no sensory deficits noted Sensorium / Orientation: alert Motor Exam: strength 5/5 throughout Psych mental status grossly normal Skin no rashes or lesions noted and no wounds MDM MDM MDM Narrative Medical decision making narrative: ED addiction order set was initiated. Radha iedeya is tachycardic. She did receive IV Ativan. She will require admission for alcohol detox. Lab Data Labs: Laboratory Results - last 24 hr 05/27/21 05/27/21 05/27/21 18:40 18:40 18:40 WBC 4.1 L RBC 4.30 Hgb 14.0 Hct 41.1 MCV 95.6 MCH 32.6 H MCHC 34.1 RDW Std Deviation 51.8 H RDW Coeff of Sean 14.6 Plt Count 182 MPV 8.9 Immature Gran % (Auto) 0.200 Neut % (Auto) 49.0 Lymph % (Auto) 38.5 [place] % (Auto) 9.6 Eos % (Auto) 2.0 Baso % (Auto) 0.7 Absolute Neuts (auto) 2.0 Absolute Lymphs (auto) 1.56 Nucleated RBC % 0 Sodium 137 Potassium 3.2 L Chloride 103 Carbon Dioxide 27.0 Anion Gap 7 BUN 4 L Creatinine 0.65 Estim Creat Clear Calc 81.89 Est GFR (MDRD) Af Amer 124 Est GFR (MDRD) Non-Af 102 BUN/Creatinine Ratio 6.1 L Glucose 99 Calcium 8.6 Total Bilirubin 0.60 AST 170 H ALT 102 H Alkaline Phosphatase 122 H Total Protein 8.4 H Albumin 4.2 Globulin 4.2 Albumin/Globulin Ratio 1.0 Urine Opiates Screen Urine Methadone Screen Ur Barbiturates Screen Ur Phencyclidine Scrn Ur Amphetamines Screen U Methamphetamin-MDMA U Benzodiazepines Scrn Urine Cocaine Screen U Cannabinoids Screen Ur Drug Screen Comment Ethyl Alcohol 255.0 05/27/21 18:50 WBC RBC Hgb Hct MCV MCH MCHC RDW Std Deviation RDW Coeff of Sean Plt Count MPV Immature Gran % (Auto) Neut % (Auto) Lymph % (Auto) [place] % (Auto) Eos % (Auto) Baso % (Auto) Absolute Neuts (auto) Absolute Lymphs (auto) Nucleated RBC % Sodium Potassium Chloride Carbon Dioxide Anion Gap BUN Creatinine Estim Creat Clear Calc Est GFR (MDRD) Af Amer Est GFR (MDRD) Non-Af BUN/Creatinine Ratio Glucose Calcium Total Bilirubin AST ALT Alkaline Phosphatase Total Protein Albumin Globulin Albumin/Globulin Ratio Urine Opiates Screen NEGATIVE Urine Methadone Screen NEGATIVE Ur Barbiturates Screen NEGATIVE Ur Phencyclidine Scrn NEGATIVE Ur Amphetamines Screen NEGATIVE U Methamphetamin-MDMA NEGATIVE U Benzodiazepines Scrn NEGATIVE Urine Cocaine Screen NEGATIVE U Cannabinoids Screen NEGATIVE Ur Drug Screen Comment Ethyl Alcohol Discharge Plan Triage Chief Complaint: Substance Abuse ED Provider: Rafa Farmer Dx/Rx/DC Orders Clinical Impression: Alcohol withdrawal, Alcohol dependence Prescriptions: No Action carbamazepine 200 MG tablet 200 mg PO BID RF: 0 trazodone 100 MG tablet 100 mg PO QHS RF: 0 Primary Care Provider: Care Physician,No Primary Referrals: Care Physician,No Primary [Primary Care Provider] - Disposition Disposition: [facility]
[2021-05-27 18:57] LABS: Absolute Lymphocyte Count 1.56 X10^3/uL (0.83-4.51); Basophil# 0.03 X10^3/uL; Basophil% 0.7 % (0-1); Eosinophil# 0.08 X10^3/uL; Hematocrit 41.1 % (37-47); Lymphocyte # 1.56 X10^3/ul (0.83-4.51); Lymphocyte % 38.5 % (19-41); Mean Corp Hgb Conc 34.1 g/dL (32-36); Mean Corpuscular Hgb 32.6 pg (27.0-32.0); Mean Corpuscular Volume 95.6 fL (81-99); Mean Platelet Vol. 8.9 fl (6.2-12.0); Monocyte# 0.39 X10^3/uL; Monocyte% 9.6 % (0-10); NRBC Flagged by Analyzer 0 % (0-5); Neutrophil # 1.98 X10^3/uL (2.7-7.7); Platelet Count 182 K/mm3 (150-450); RBC Distribution Width CV 14.6 % (11.6-14.6); RBC Distribution Width SD 51.8 fl (35.1-43.9); White Blood Count 4.1 K/mm3 (4.4-11.0)
[2021-05-27] MEDS: LORazepam 2 MG/ML Syringe 1 MG IV ×2 (19:04→21:01)
--- NOTE | 2021-05-27 19:05 | HP.PCM.HOS_ITS ---
HPI - General General Date of Admission: 05/27/21 Date of Service: 05/27/21 Chief Complaint: Acute EtOH Withdrawal HPI Narrative The patient is a 51 y/o F w/ PMHx: Anxiety and Depression/Bipolar disorder, Tobacco use, EtOH abuse who presents to the [facility] ED on 05/27/21 with history of acute EtOH withdrawal, onset starting several hours prior to ED presentation following last EtOH intake at 14:30 with onset of nausea, tremors, agitation, t actile disturbances. Patient interested in attaining sober status. She normally drinks ~ 24 cans of white claw daily. Patient per discussion had been sober for 9 months however she has been stressed, working excessively and began to drink over the last several days, additionally reporting that her mother approximately 10 days prior to current presentation and was in fact also an alcoholic. Work-up in the ED included T 97, heart rate 106, BP 137/93, respiratory rate 18, 95% on room air, CBC with WC 4.1, hemoglobin 14, platelet 182 without marked shift, unremarkable PT, INR, CMP with potassium 3.2, BUN/creatinine 4/0.65, AST/ALT 170/102, alk phos 122, UDS negative, ethyl alcohol 255. [facility] Medical History Alcohol abuse Anxiety Bipolar disorder Depression Hypertension Substance abuse Tobacco use Home Medications NK 05/27/21 [History Last Taken Unknown] Allergy/AdvReac Type Severity Reaction Status Date / Time No Known Allergies Allergy Verified 05/27/21 16:30 Family History (Updated 05/28/21 @ 05:[address] Antonia Laird MD) Father Myocardial infarction Hypertension Heart disease Mother Alcohol abuse Surgical History (Updated 05/28/21 @ 05:[address] Antonia Laird MD) H/O section H/O gastric bypass History of ankle surgery Social History (Updated 05/27/21 @ 18:[address] Rafa Farmer MD) household members: none Smoking Status: Current every day smoker tobacco type: cigarettes alcohol intake: current details: 24-48 white claws per day substance use type: former substance user ROS ROS Narrative Admission Review of Systems: CONSTITUTIONAL: No weight loss, fever, chills, + weakness or fatigue. HEENT: Eyes: No visual loss, blurred vision, double vision or yellow sclerae. Ears, Nose, Throat: No hearing loss, sneezing, congestion, runny nose or sore throat. SKIN: No rash or itching, lesions, wounds. CARDIOVASCULAR: No chest pain, chest pressure or chest discomfort, palpitations, edema, orthopnea, syncopal events. RESPIRATORY: No shortness of breath, cough or sputum, wheezing, hemoptysis. GASTROINTESTINAL: + anorexia, nausea, No vomiting or diarrhea, abdominal pain, melena, BRBPR. GENITOURINARY: No dysuria, frequency, urgency or retention. NEUROLOGICAL: + Tremors, tactile disturbances, No headache, dizziness, syncope, paralysis, ataxia, focal weakness, change in bowel or bladder control, seizure. MUSCULOSKELETAL: + muscle, back pain, joint pain or stiffness. HEMATOLOGIC: No anemia, bleeding or bruising. LYMPHATICS: No enlarged nodes. No history of splenectomy. PSYCHIATRIC: + history of depression or anxiety. ENDOCRINOLOGIC: No reports of sweating, cold or heat intolerance. No polyuria or polydipsia. ALLERGIES: No history of asthma, hives, eczema or rhinitis. Vital Signs Vital Signs Vital Signs: 05/27/21 16:28 Temperature 97.0 F L Temperature Source Temporal Pulse Rate 106 H Respiratory Rate 18 Blood Pressure 137/93 H Blood Pressure Mean 107 Pulse Ox 95 Oxygen Delivery Method Room Air Weight Weight: 185 lb Body Mass Index (BMI) 33.8 Physical Exam Narrative Physical Examination: General: Awake, alert, oriented x 3 and cooperative, seated upright in the ED bed, anxious appearing, mildly tremulous. Skin: Normal color, normal turgor, no icterus, no cyanosis. HEENT: AT/NC, EOMI, PERRLA, dry MM, no carotid bruits or JVD noted. Lungs: Diminished breath sounds, greater bases, moderate effort, no rales, ronchi or wheezing. Heart: Mildly tachycardic with regular rhythm; no gallop, rub audible. Abdomen: Soft, obese, NTTP, ND, normal BS, unable to discern any HSM. Extremities: No cyanosis, clubbing, or edema. Neurological: Patient awake, alert, oriented as noted, cognitive function intact; pupils equally reactive to light and accommodation, cranial nerves II-X II grossly normal, moving all 4 extremities, no focal deficits, strength moderately global decrease secondary to acute presentation, moderately tremulous. Psychiatric: Affect appears anxious, no acute evidence of depressive feelings. Results Lab / Micro Data Result Diagrams: 05/27/21 18:40 05/27/21 18:40 Labs: Laboratory Results - last 24 hr 05/27/21 18:40: WBC 4.1 L, RBC 4.30, Hgb 14.0, Hct 41.1, MCV 95.6, MCH 32.6 H, MCHC 34.1, RDW Std Deviation 51.8 H, RDW Coeff of Sean 14.6, Plt Count 182, MPV 8.9, Immature Gran % (Auto) 0.200, Neut % (Auto) 49.0, Lymph % (Auto) 38.5, [place] % (Auto) 9.6, Eos % (Auto) 2.0, Baso % (Auto) 0.7, Absolute Neuts (auto) 2.0, Absolute Lymphs (auto) 1.56, Nucleated RBC % 0 05/27/21 18:50: Ur Drug Screen Comment Assessment & Plan Assessment/Plan (1) Alcoholism /alcohol abuse: (2) Alcohol withdrawal: QUALIFIERS: Complication of substance-induced condition: uncomplicated Qualified Code(s): F10.230 - Alcohol dependence with withdrawal, uncomplicated PLAN: The patient is a 51 y/o F w/ PMHx: Anxiety and Depression/Bipolar disorder, Tobacco use, EtOH abuse who presents to the [facility] ED on 05/27/21 with history of acute EtOH withdrawal. 1. Acute EtOH Withdrawal: Will admit to DE, routine labs obtained in the ED upon presentation and notable for . Given interest in sobriety, will initiate and continue on protocol with taper course of Phenobarbital, scheduled gabapentin for seizure prophylaxis, as needed Catapres, Bentyl, Vistaril, IV fluids, IV antiemetics, Tylenol as needed for pain. Will consult Case management for assistance for transition to next level of rehabilitation care. Mag, phos pending. Maintain on CIAZ protocol concurrently. 2. Elevated LFTs, suspect chronic, secondary to alcohol abuse: Admission AST/LT 170/102, alk phos 122, will continue treatment as noted above, repeat CMP in AM. 3. Hypokalemia: Admission K+ 3.2, magnesium requested, supplementation given, repeat level in AM. 4. Elevated BP without hypertensive diagnosis: Patient blood pressure is el evated, not on any regimen with no prior history reported of hypertension, will have as needed IV hydralazine however if continued elevations may require oral recommendation. 5. Anxiety and depression/bipolar disorder: Patient is on any regimen, likely contributing to presentation, will need aggressive follow-up with case management and 180, may consider addition of mood stabilizer and antidepressant therapy. 6. Tobacco Abuse: Encouraged cessation, inpatient consultation per RT, NR if desired. 7. DVT prophylaxis: Low risk, encourage ambulation. Charges/Coding Visit Charges Inpatient E&M: 81893 Init Hosp L3
[2021-05-27 19:10] LABS: Amphetamine Urine VISTA NEGATIVE (<1000 ng/mL); Barbiturate Urine VISTA NEGATIVE (< 200 ng/mL); Benzodiazepine Urine VISTA NEGATIVE (< 200 ng/mL); Cocaine Urine VISTA NEGATIVE (< 300 ng/mL); Ecstacy Urine VISTA NEGATIVE (< 500 ng/mL); Methadone Urine VISTA NEGATIVE (< 300 ng/mL); PCP Urine VISTA NEGATIVE (< 25 ng/mL); THC Urine VISTA NEGATIVE (< 50 ng/mL); Vista UDS pH Range 7
[2021-05-27 19:11] LABS: AST(SGOT) 170 U/L (15-37); Alanine Aminotransfer ALT/SGPT 102 U/L (13-56); Albumin, Serum 4.2 g/dL (3.2-5.0); Alkaline Phosphatase 122 U/L (45-117); Anion Gap 7 (5-15); BUN 4 mg/dL (7-18); BUN/Creat Ratio 6.1 RATIO (10-20); Calcium,Total 8.6 mg/dL (8.5-10.1); Chloride 103 mmol/L (98-107); Creatinine, Serum 0.65 mg/dL (0.55-1.02); EST Glomerular Filtration Rate 102 mL/min (>60); Est Glom Filt Rate - Afr Amer 124 mL/min (>60); Estimated Creatinine Clearance 81.89 ml/min; Globulin 4.2 g/dL (2.2-4.2); Glucose 99 mg/dL (74-106); Potassium 3.2 mmol/L (3.5-5.1); Protein, Total 8.4 g/dL (6.4-8.2); Sodium Level 137 mmol/L (136-145)
--- NOTE | 2021-05-27 19:14 | CM.ED ---
ALIZE Note: Referral Source: Case Find Referral Reason: RAMP admission SW met with patient. Her drug of choice is alcohol. Her last drink was at 15:00 today. Patient said that she drank at least 24 [place]. SW asked what time she started drinking and she said at 6-7 am this morning. Patient said that she got up, threw up and then drank. Patient said that she told the MD that she is unsure if she has been drinking this much for 5 or even 10 days. Patient said that she used to be in AA but has not been active due to work schedule. Patient was previously linked with [facility]. Patient said that Mario Alberto Jauregui from [facility] at [facility] brought her to the ED. Patient said that her goal is detox and to get back into programs such as [facility]. Commercial Art Instructor spoke to Mae at [facility]. Mae will follow up with patient on Sunday05/28/21. Plan: Ramp Program
[2021-05-27 19:27] LABS: Prothrombin Time (Protime)PT. 12.9 SECONDS (11.7-14.9)
[2021-05-27 20:11] LABS: Magnesium 1.8 mg/dL (1.6-2.6)
[2021-05-27 20:15] VITALS: BP 142/82; PULSE 99; RESP 18; TEMP 36.2; O2SAT 97
--- NOTE | 2021-05-27 20:43 | PCS.PANDOC ---
PANDEMIC DOCUMENTATION INITIATED: Date: 04/18/2021 Time: 190
[2021-05-27] MEDS: Phenobarbital 32.4 MG Tablet 97.2 MG PO (21:04)
[2021-05-27 21:14] VITALS: BMI 32.1
[2021-05-27 21:20] VITALS: BP 141/86; PULSE 91; RESP 15; TEMP 36.9; O2SAT 95
[2021-05-27 22:35] VITALS: PULSE 100
[2021-05-27 22:38] VITALS: BP 141/86; PULSE 91; RESP 15; TEMP 36.9; O2SAT 95
[2021-05-27] MEDS: traZODone 100 MG Tablet PO (22:48)
[2021-05-27] MEDS: Lactated Ringers 1,000 ML 125 ML IV (22:49)
[2021-05-27] MEDS: Famotidine 20 MG Tablet PO (22:49)
[2021-05-27] MEDS: Phenobarbital 32.4 MG Tablet 64.8 MG PO (22:49)
[2021-05-27] MEDS: carBAMazepine 200 MG Tablet PO (23:36)
[2021-05-28] VITALS (8 sets, daily range): BP systolic 151–171; BP diastolic 71–106; PULSE 70–101; RESP 18; TEMP 36.6–37.1; O2SAT 93–100
[2021-05-28] MEDS: Phenobarbital 32.4 MG Tablet 64.8 MG PO ×6 (02:32→21:46)
[2021-05-28] MEDS: Ondansetron 8 MG Tablet PO (02:40)
[2021-05-28] MEDS: Acetaminophen 325 MG Tablet 650 MG PO (02:40)
[2021-05-28] MEDS: Ibuprofen 600 MG Tablet PO (02:40)
[2021-05-28] MEDS: Potassium Chloride Oral Tablet 20 MEQ 40 MEQ PO (05:28)
[2021-05-28 06:40] LABS: Absolute Lymphocyte Count 0.87 X10^3/uL (0.83-4.51); Absolute Neutrophil Count 1.8 X10^3/uL (2.0-7.7); Basophil# 0.03 X10^3/uL; Basophil% 0.9 % (0-1); Eosinophil# 0.03 X10^3/uL; Eosinophils% 0.9 % (0-5); Hematocrit 39.1 % (37-47); Hemoglobin 12.9 g/dL (12.0-15.0); Lymphocyte # 0.87 X10^3/ul (0.83-4.51); Lymphocyte % 27.4 % (19-41); Mean Platelet Vol. 9.1 fl (6.2-12.0); Monocyte# 0.39 X10^3/uL; Monocyte% 12.3 % (0-10); NRBC Flagged by Analyzer 0 % (0-5); Neutrophil # 1.83 X10^3/uL (2.7-7.7); Neutrophil % 57.9 % (47-70); Platelet Count 145 K/mm3 (150-450); RBC Distribution Width CV 14.6 % (11.6-14.6); RBC Distribution Width SD 52.3 fl (35.1-43.9); Red Blood Count 4.03 M/mm3 (4.2-5.4); White Blood Count 3.2 K/mm3 (4.4-11.0)
[2021-05-28 07:09] LABS: ALB/GLOB Ratio 0.9 RATIO (0.9-2.4); AST(SGOT) 171 U/L (15-37); Alanine Aminotransfer ALT/SGPT 89 U/L (13-56); Albumin, Serum 3.4 g/dL (3.2-5.0); Alkaline Phosphatase 117 U/L (45-117); Anion Gap 5 (5-15); BUN 5 mg/dL (7-18); Calcium,Total 8.8 mg/dL (8.5-10.1); Chloride 107 mmol/L (98-107); Creatinine, Serum 0.63 mg/dL (0.55-1.02); EST Glomerular Filtration Rate 107 mL/min (>60); Est Glom Filt Rate - Afr Amer 129 mL/min (>60); Estimated Creatinine Clearance 92.25 ml/min; Globulin 3.7 g/dL (2.2-4.2); Glucose 104 mg/dL (74-106); Potassium 3.8 mmol/L (3.5-5.1); Protein, Total 7.1 g/dL (6.4-8.2); Sodium Level 139 mmol/L (136-145)
[2021-05-28] MEDS: carBAMazepine 200 MG Tablet PO ×2 (07:48→20:41)
[2021-05-28] MEDS: Thiamine Hydrochloride 100 MG Tablet PO (07:48)
[2021-05-28] MEDS: Famotidine 20 MG Tablet PO ×2 (07:49→20:42)
[2021-05-28] MEDS: Folic Acid 1 MG Tablet PO (07:49)
--- NOTE | 2021-05-28 09:14 | PCM.PN.HOSP ---
Subjective Subjective Patient was seen and examined. She feels improved. She is less tremulous, or nauseous. Objective Data Objective Data Vital Signs: Vital Signs Temp Pulse Resp BP Pulse Ox 98.7 F 70 18 157/89 H 93 05/28/21 05:22 05/28/21 07:32 05/28/21 05:22 05/28/21 05:22 05/28/21 05:22 Oxygen Delivery Method Room Air Weight: 84.822 kg Body Mass Index (BMI) 32.1 Intake & Output: Intake and Output for Last 24 Hours 05/26/21 05/27/21 05/28/21 23:59 23:59 23:59 Intake Total 985.42 / 985.42 Balance 985.42 / 985.42 Lab / Micro Data Result Diagrams: 05/28/21 06:05 05/28/21 06:05 Labs: Laboratory Results - last 24 hr 05/27/21 18:40: WBC 4.1 L, RBC 4.30, Hgb 14.0, Hct 41.1, MCV 95.6, MCH 32.6 H, MCHC 34.1, RDW Std Deviation 51.8 H, RDW Coeff of Sean 14.6, Plt Count 182, MPV 8.9, Immature Gran % (Auto) 0.200, Neut % (Auto) 49.0, Lymph % (Auto) 38.5, [place] % (Auto) 9.6, Eos % (Auto) 2.0, Baso % (Auto) 0.7, Absolute Neuts (auto) 2.0, Absolute Lymphs (auto) 1.56, Nucleated RBC % 0 05/27/21 18:40: PT 12.9, INR 1.0 05/27/21 18:40: Sodium 137, Potassium 3.2 L, Chloride 103, Carbon Dioxide 27.0, Anion Gap 7, BUN 4 L, Creatinine 0.65, Estim Creat Clear Calc 81.89, Est GFR (MDRD) Af Amer 124, Est GFR (MDRD) Non-Af 102, BUN/Creatinine Ratio 6.1 L, Glucose 99, Calcium 8.6, Total Bilirubin 0.60, AST 170 H, ALT 102 H, Alkaline Phosphatase 122 H, Total Protein 8.4 H, Albumin 4.2, Globulin 4.2, Albumin/Globulin Ratio 1.0 05/27/21 18:40: Ethyl Alcohol 255.0 05/27/21 18:40: Phosphorus 3.0, Magnesium 1.8 05/27/21 18:50: Urine Opiates Screen NEGATIVE, Urine Methadone Screen NEGATIVE, Ur Barbiturates Screen NEGATIVE, Ur Phencyclidine Scrn NEGATIVE, Ur Amphetamines Screen NEGATIVE, U Methamphetamin-MDMA NEGATIVE, U Benzodiazepines Scrn NEGATIVE, Urine Cocaine Screen NEGATIVE, U Cannabinoids Screen NEGATIVE, Ur Drug Screen Comment 05/28/21 06:05: WBC 3.2 L, RBC 4.03 L, Hgb 12.9, Hct 39.1, MCV 97.0, MCH 32.0, MCHC 33.0, RDW Std Deviation 52.3 H, RDW Coeff of Sean 14.6, Plt Count 145 L, MPV 9.1, Immature Gran % (Auto) 0.600, Neut % (Auto) 57.9, Lymph % (Auto) 27.4, [place] % (Auto) 12.3 H, Eos % (Auto) 0.9, Baso % (Auto) 0.9, Absolute Neuts (auto) 1.8 L, Absolute Lymphs (auto) 0.87, Nucleated RBC % 0 05/28/21 06:05: Sodium 139, Potassium 3.8, Chloride 107, Carbon Dioxide 27.0, Anion Gap 5, BUN 5 L, Creatinine 0.63, Estim Creat Clear Calc 92.25, Est GFR (MDRD) Af Amer 129, Est GFR (MDRD) Non-Af 107, BUN/Creatinine Ratio 8.0 L, Glucose 104, Calcium 8.8, Total Bilirubin 1.30 H, AST 171 H, ALT 89 H, Alkaline Phosphatase 117, Total Protein 7.1, Albumin 3.4, Globulin 3.7, Albumin/Globulin Ratio 0.9 Physical Exam Narrative Physical exam: General: Alert, Oriented x3, Cooperative, No apparent distress, Well developed, slight tremors in the right hand HEENT: Atraumatic Oral: Moist Mucosa Neck: Supple Lungs: Clear to auscultation Cardiovascular: HS I+II, regular, no murmurs Abdomen: Bowel Sounds Present, Soft, Non Tender Extremities: No edema Assessment & Plan Assessment/Plan (1) Alcoholism /alcohol abuse: (2) Alcohol withdrawal: QUALIFIERS: Complication of substance-induced condition: uncomplicated Qualified Code(s): F10.230 - Alcohol dependence with withdrawal, uncomplicated PLAN: 1. Acute acute alcohol withdrawal, last CIWA score was 0, continue on phenobarb taper Continue on folic acid, multivitamin, thiamine 2. Hypomagnesemia/hypokalemia, replace, recheck in a.m. 3. Elevated LFTs, chronic, AST, ALT and ALP appears slightly improved, total bilirubin is worse Will trend in a.m. 4. Uncontrolled blood pressure, no history of hypertension, blood pressures have been uncontrolled Will trend for the next 24 hours, if continues to be elevated will start treating 5. Anxiety/depression, not on meds, denies any acute need, will need outpatient follow-up 6. Nicotine dependence, advised to quit, on replacement Charges/Coding Visit Charges Inpatient E&M: 71281 Subs Hosp L2
[2021-05-28 09:48] LABS: Magnesium 1.6 mg/dL (1.6-2.6)
--- NOTE | 2021-05-28 11:31 | PCM.PN.HOSP ---
Documented by User: Pippa Stewart NP, [employer] 05/28/21 11:38 Subjective Subjective Patient seen and examined. Reports nausea and headache. Denies other withdrawal symptoms currently. States she has not yet eaten breakfast this morning and feels that would help with her nausea. Objective Data Objective Data Vital Signs: Vital Signs Temp Pulse Resp BP Pulse Ox 98.1 F 79 18 151/93 H 97 05/28/21 10:50 05/28/21 10:50 05/28/21 10:50 05/28/21 10:50 05/28/21 10:50 Oxygen Delivery Method Room Air Weight: 187 lb Body Mass Index (BMI) 32.1 Intake & Output: Intake and Output for Last 24 Hours 05/26/21 05/27/21 05/28/21 23:59 23:59 23:59 Intake Total 985.42 / 985.42 Balance 985.42 / 985.42 Lab / Micro Data Result Diagrams: 05/28/21 06:05 05/28/21 06:05 Labs: Laboratory Results - last 24 hr 05/27/21 18:40: WBC 4.1 L, RBC 4.30, Hgb 14.0, Hct 41.1, MCV 95.6, MCH 32.6 H, MCHC 34.1, RDW Std Deviation 51.8 H, RDW Coeff of Sean 14.6, Plt Count 182, MPV 8.9, Immature Gran % (Auto) 0.200, Neut % (Auto) 49.0, Lymph % (Auto) 38.5, [place] % (Auto) 9.6, Eos % (Auto) 2.0, Baso % (Auto) 0.7, Absolute Neuts (auto) 2.0, Absolute Lymphs (auto) 1.56, Nucleated RBC % 0 05/27/21 18:40: PT 12.9, INR 1.0 05/27/21 18:40: Sodium 137, Potassium 3.2 L, Chloride 103, Carbon Dioxide 27.0, Anion Gap 7, BUN 4 L, Creatinine 0.65, Estim Creat Clear Calc 81.89, Est GFR (MDRD) Af Amer 124, Est GFR (MDRD) Non-Af 102, BUN/Creatinine Ratio 6.1 L, Glucose 99, Calcium 8.6, Total Bilirubin 0.60, AST 170 H, ALT 102 H, Alkaline Phosphatase 122 H, Total Protein 8.4 H, Albumin 4.2, Globulin 4.2, Albumin/Globulin Ratio 1.0 05/27/21 18:40: Ethyl Alcohol 255.0 05/27/21 18:40: Phosphorus 3.0, Magnesium 1.8 05/27/21 18:50: Urine Opiates Screen NEGATIVE, Urine Methadone Screen NEGATIVE, Ur Barbiturates Screen NEGATIVE, Ur Phencyclidine Scrn NEGATIVE, Ur Amphetamines Screen NEGATIVE, U Methamphetamin-MDMA NEGATIVE, U Benzodiazepines Scrn NEGATIVE, Urine Cocaine Screen NEGATIVE, U Cannabinoids Screen NEGATIVE, Ur Drug Screen Comment 05/28/21 06:05: WBC 3.2 L, RBC 4.03 L, Hgb 12.9, Hct 39.1, MCV 97.0, MCH 32.0, MCHC 33.0, RDW Std Deviation 52.3 H, RDW Coeff of Sean 14.6, Plt Count 145 L, MPV 9.1, Immature Gran % (Auto) 0.600, Neut % (Auto) 57.9, Lymph % (Auto) 27.4, [place] % (Auto) 12.3 H, Eos % (Auto) 0.9, Baso % (Auto) 0.9, Absolute Neuts (auto) 1.8 L, Absolute Lymphs (auto) 0.87, Nucleated RBC % 0 05/28/21 06:05: Sodium 139, Potassium 3.8, Chloride 107, Carbon Dioxide 27.0, Anion Gap 5, BUN 5 L, Creatinine 0.63, Estim Creat Clear Calc 92.25, Est GFR (MDRD) Af Amer 129, Est GFR (MDRD) Non-Af 107, BUN/Creatinine Ratio 8.0 L, Glucose 104, Calcium 8.8, Total Bilirubin 1.30 H, AST 171 H, ALT 89 H, Alkaline Phosphatase 117, Total Protein 7.1, Albumin 3.4, Globulin 3.7, Albumin/Globulin Ratio 0.9 05/28/21 06:05: Magnesium 1.6 Physical Exam Const alert, oriented x3 and no apparent distress Orientation / Consciousness: awake, oriented to person, oriented to place and oriented to time HEENT normocephalic and moist oral mucous membranes Eyes PERRL, EOMs intact bilaterally and conjunctivae normal Neck no lymphadenopathy Resp normal respiratory effort and clear to auscultation bilaterally Cardio regular rate, regular rhythm and no murmurs Peripheral Pulses: pulses 2+ throughout GI normal to inspection, nondistended, normoactive bowel sounds, non-tender and non-distended Extremity normal to inspection Skin no rashes or lesions noted Lesions: no lesions Rashes: no rashes Trauma: no lacerations or abrasions Neuro CN's II-XII intact bilaterally, no focal motor deficits, no sensory deficits noted and deep tendon reflexes 2+ bilaterally Psych mental status grossly normal and affect normal Assessment & Plan Assessment/Plan (1) Alcohol withdrawal: QUALIFIERS: Complication of substance-induced condition: uncomplicated Qualified Code(s): F10.230 - Alcohol dependence with withdrawal, uncomplicated PLAN: 1. Acute alcohol withdrawal, chronic alcohol dependence-medical stabilization per protocol. Phenobarbital taper, as needed regimen for somatic complaints. Addiction medicine consult. [facility] protocol. 2. Electrolyte disturbances with hypomagnesia, hypokalemia-replace per protocol, trend labs. 3. Elevated LFTs-secondary to chronic alcohol use. Trend labs. 4. Elevated blood pressure without history of hypertension-monitor blood pressure, initiate blood pressure regimen if remains above goal. 5. Tobacco dependence-encouraged cessation. DVT prophylaxis- not indicated, low risk This patient was seen by LIZ Suarez under the supervision of Dr. Swenson. Documented by User: Dr. Shayla Swenson MD 05/28/21 12:55 Objective Data Lab / Micro Data Result Diagrams: 05/28/21 06:05 05/28/21 06:05
--- NOTE | 2021-05-28 12:54 | CASEMGMT ---
ALIZE Note Referral Source: EZEQUIEL RUBIO Referral Reason: RAMP patient. Per chart patient's mother a few weeks ago. SW met with patient in her room. Patient voiced that she is feeling better. Patient said that she went to [facility] in [place] and completed her assessment but has not started counseling yet. Patient said that she was aware that she would need support with her mother's so began the assessment process prior to her mother's . Patient said that her mother 05/17/2021. Patient said that she got her first COVID vaccine the earlier part of the month and scheduled the 2nd COVID vaccine 3 weeks later but it was after her mother's so patient was unable to travel to the . Patient said that she needs therapy to assist with the guilt about not going to her [place] for being with her mom and the . SW provided emotional support to patient. Advised that [facility] would come in to see patient today. Patient said that she previously went to [facility] in the past but it was not a good fit. Patient plans to follow up with [facility] for emotional support and counseling related to her mother's . Plan:Emotional support provided Anika MAYNARD
[2021-05-28] MEDS: hydrALAZINE 20 MG/ML Vial 10 MG IV (17:33)
[2021-05-28] MEDS: traZODone 100 MG Tablet PO (20:42)
[2021-05-29 00:24] VITALS: BP 156/98; PULSE 88; RESP 16; TEMP 36.8; O2SAT 98
[2021-05-29] MEDS: Phenobarbital 32.4 MG Tablet 64.8 MG PO ×3 (03:04→10:46)
[2021-05-29 06:24] VITALS: BP 138/93; PULSE 85; RESP 16; TEMP 36.8; O2SAT 96
[2021-05-29 07:25] VITALS: PULSE 110
[2021-05-29] MEDS: carBAMazepine 200 MG Tablet PO (07:31)
[2021-05-29] MEDS: Famotidine 20 MG Tablet PO (07:32)
[2021-05-29] MEDS: Thiamine Hydrochloride 100 MG Tablet PO (07:32)
[2021-05-29] MEDS: Folic Acid 1 MG Tablet PO (07:34)
[2021-05-29 08:17] LABS: ALB/GLOB Ratio 0.9 RATIO (0.9-2.4); AST(SGOT) 165 U/L (15-37); Alanine Aminotransfer ALT/SGPT 93 U/L (13-56); Albumin, Serum 3.4 g/dL (3.2-5.0); Alkaline Phosphatase 116 U/L (45-117); Anion Gap 7 (5-15); BUN 6 mg/dL (7-18); BUN/Creat Ratio 8.9 RATIO (10-20); Calcium,Total 8.5 mg/dL (8.5-10.1); Chloride 106 mmol/L (98-107); Creatinine, Serum 0.67 mg/dL (0.55-1.02); EST Glomerular Filtration Rate 99 mL/min (>60); Est Glom Filt Rate - Afr Amer 119 mL/min (>60); Estimated Creatinine Clearance 86.74 ml/min; Globulin 3.9 g/dL (2.2-4.2); Glucose 99 mg/dL (74-106); Potassium 3.7 mmol/L (3.5-5.1); Protein, Total 7.3 g/dL (6.4-8.2); Sodium Level 139 mmol/L (136-145)
[2021-05-29 10:47] VITALS: BP 151/105; PULSE 86; RESP 16; TEMP 36.6; O2SAT 97
--- NOTE | 2021-05-29 11:25 | PN.HOSP_ITS ---
Documented by User: Pippa Stewart NP, [employer] 05/29/21 11:34 Subjective Subjective Patient seen and examined. States she feels significantly improved. Requesting to return home today as she states she has to take her kids to school in the morning. Denies further withdrawal symptoms. Objective Data Objective Data Vital Signs: Vital Signs Temp Pulse Resp BP Pulse Ox 97.9 F 86 16 151/105 H 97 05/29/21 10:47 05/29/21 10:47 05/29/21 10:47 05/29/21 10:47 05/29/21 10:47 Oxygen Delivery Method Room Air Weight: 187 lb Body Mass Index (BMI) 32.1 Intake & Output: Intake and Output for Last 24 Hours 05/27/21 05/28/21 05/29/21 23:59 23:59 23:59 Intake Total 1089.42 / 1889.42 1400 / 1400 Balance 1089.42 / 1889.42 1400 / 1400 Lab / Micro Data Result Diagrams: 05/28/21 06:05 05/29/21 06:22 Labs: Laboratory Results - last 24 hr 05/29/21 06:22: Sodium 139, Potassium 3.7, Chloride 106, Carbon Dioxide 26.0, Anion Gap 7, BUN 6 L, Creatinine 0.67, Estim Creat Clear Calc 86.74, Est GFR (MDRD) Af Amer 119, Est GFR (MDRD) Non-Af 99, BUN/Creatinine Ratio 8.9 L, Glucose 99, Calcium 8.5, Total Bilirubin 0.90, AST 165 H, ALT 93 H, Alkaline Phosphatase 116, Total Protein 7.3, Albumin 3.4, Globulin 3.9, Albumin/Globulin Ratio 0.9 Physical Exam Const alert, oriented x3 and no apparent distress Orientation / Consciousness: awake, oriented to person, oriented to place and oriented to time HEENT normocephalic and moist oral mucous membranes Eyes PERRL, EOMs intact bilaterally and conjunctivae normal Neck no lymphadenopathy Resp normal respiratory effort and clear to auscultation bilaterally Cardio regular rate, regular rhythm and no murmurs Peripheral Pulses: pulses 2+ throughout GI normal to inspection, nondistended, normoactive bowel sounds, non-tender and non-distended Extremity normal to inspection Skin no rashes or lesions noted Lesions: no lesions Rashes: no rashes Trauma: no lacerations or abrasions Neuro CN's II-XII intact bilaterally, no focal motor deficits, no sensory deficits noted and deep tendon reflexes 2+ bilaterally Psych mental status grossly normal and affect normal Assessment & Plan Assessment/Plan (1) Alcohol withdrawal: QUALIFIERS: Complication of substance-induced condition: uncomplicated Qualified Code(s): F10.230 - Alcohol dependence with withdrawal, uncomplicated PLAN: 1. Acute alcohol withdrawal, chronic alcohol dependence-medical stabilization per protocol. Phenobarbital taper, as needed regimen for somatic complaints. Addiction medicine consult. [facility] protocol. 2. Electrolyte disturbances with hypomagnesia, hypokalemia-resolved, trend labs. 3. Elevated LFTs-secondary to chronic alcohol use. Trend labs. 4. Elevated blood pressure without history of hypertension-as needed hydralazine for systolic blood pressure greater than 160. We will begin lisinopril 10 mg daily. Monitor blood pressure and adjust medications accordingly. 5. Tobacco dependence-encouraged cessation. DVT prophylaxis- not indicated, low risk Discharge plan: Anticipate discharge 05/30/2021 if patient remains stable from alcohol withdrawal standpoint and pending addiction medicine consult. This patient was seen by LIZ Suarez under the supervision of Dr. Swenson. Documented by User: Dr. Shayla Swenson MD 05/29/21 14:22 Objective Data Lab / Micro Data Result Diagrams: 05/28/21 06:05 05/29/21 06:22 Charges/Coding Addendum Addendum: This patient was seen in conjunction with Pippa Stewart. I have independently interviewed and examined the patient and reviewed pertinent historical, laboratory, and other data. I have reviewed her note and concur with her documentation Patient was seen and examined. No new complaints. Physical Exam: Gen: Comfortable, not pale, not jaundiced CVS:HS I +II, regular, no murmurs RESP: Diminished at lung bases GI: BS present and normal, soft, nontender, no palpable organs EXT:No edema ASSESSMENT: 1. Acute alcohol withdrawal 2. Elevated LFTs 3. Hypokalemia 4. Hypertension, newly diagnosed Plan: Start on amlodipine 5 mg daily Continue lisinopril 10 mg daily Visit Charges Inpatient E&M: 50093 Subs Hosp L2
[2021-05-29] MEDS: Lisinopril 10 MG Tablet PO (13:04)
[2021-05-29 14:09] VITALS: BP 169/108; PULSE 99; RESP 18; TEMP 36.7; O2SAT 98
--- NOTE | 2021-05-29 14:23 | NURSING ---
Pt was instructed it is not recommended to leave with an elevated bp like hers, it could cause a stroke. She stated she'll get on bp meds.
--- NOTE | 2021-05-29 14:40 | DS.PCM_ITS ---
Documented by User: Pippa Stewart NP, [employer] 05/29/21 14:46 Providers Date of Admission: 05/27/21 Date of Discharge: 05/29/21 Primary Care Physician: No Primary Care Phys Reason For Visit: ACUTE ETHO WITHDRAWAL Diagnosis Discharge Diagnosis (1) Alcohol withdrawal: Status: Acute Code(s): F10.239 - Alcohol dependence with withdrawal, unspecified Qualifiers: Complication of substance-induced condition: uncomplicated Qualified Code(s): F10.230 - Alcohol dependence with withdrawal, uncomplicated Medications at Discharge Home Medications NK 05/27/21 Hospital Course Operations None Procedures None Summary of Care Provided Minutes Spent on Discharge: 35 Hospital Course: Patient is a 51-year-old female admitted 05/27/2021 due to alcohol withdrawal. 1. Acute alcohol withdrawal, chronic alcohol dependence-medical stabilization per protocol. Phenobarbital taper, as needed regimen for somatic complaints. Patient signed out AGAINST MEDICAL ADVICE day 2 of medical stabilization p rotocol. 2. Electrolyte disturbances with hypomagnesia, hypokalemia-resolved. 3. Elevated LFTs-secondary to chronic alcohol use. Trend labs. 4. Elevated blood pressure without history of hypertension-as needed hydralazine for systolic blood pressure greater than 160. Blood pressure above goal. Planned to initiate lisinopril with further monitoring however patient signed out as noted above. 5. Tobacco dependence-encouraged cessation. Physical Exam Const alert, oriented x3 and no apparent distress Orientation / Consciousness: awake, oriented to person, oriented to place and oriented to time HEENT normocephalic and moist oral mucous membranes Eyes PERRL, EOMs intact bilaterally and conjunctivae normal Neck no lymphadenopathy Resp normal respiratory effort and clear to auscultation bilaterally Cardio regular rate, regular rhythm and no murmurs Peripheral Pulses: pulses 2+ throughout GI normal to inspection, nondistended, normoactive bowel sounds, non-tender and non-distended Extremity normal to inspection Skin no rashes or lesions noted Lesions: no lesions Rashes: no rashes Trauma: no lacerations or abrasions Neuro CN's II-XII intact bilaterally, no focal motor deficits, no sensory deficits noted and deep tendon reflexes 2+ bilaterally Psych mental status grossly normal and affect normal Patient seen and examined prior to discharge. Physical assessment as noted above. Patient signed out AGAINST MEDICAL ADVICE. This patient was seen by LIZ Suarez under the supervision of Dr. Swenson. Weight / BMI Weight Weight: 187 lb Body Mass Index (BMI) 32.1 ABG / Lab / Microbiology Data Result Diagrams: 05/28/21 06:05 05/29/21 06:22 Laboratory: Laboratory Results - last 24 hr 05/29/21 06:22: Sodium 139, Potassium 3.7, Chloride 106, Carbon Dioxide 26.0, Anion Gap 7, BUN 6 L, Creatinine 0.67, Estim Creat Clear Calc 86.74, Est GFR (MDRD) Af Amer 119, Est GFR (MDRD) Non-Af 99, BUN/Creatinine Ratio 8.9 L, Glucose 99, Calcium 8.5, Total Bilirubin 0.90, AST 165 H, ALT 93 H, Alkaline Phosphatase 116, Total Protein 7.3, Albumin 3.4, Globulin 3.9, Albumin/Globulin Ratio 0.9 05/29/21 06:22: Magnesium 2.0 Meaningful Use Info Meaningful Use Diagnoses (Choose all that apply): None applicable Discharge Plan Admission Admit Date/Time: 05/27/21 19:05 Primary Reason for Your Visit: Alcohol withdrawal Attending Provider: Shayla Swenson Primary Care Provider: Care Physician,No Primary Discharge Orders/Prescriptions Prescriptions: No Action NK RF: 0 Referrals / Follow Up: Care Physician,No Primary [Primary Care Provider] - In 1 Week Disposition Disposition (needs filled in before D/C Order can be placed): Against Medical Advice Documented by User: Dr. Shayla Swenson MD 05/29/21 17:25 Providers Date of Admission: 05/27/21 Reason For Visit: ACUTE ETHO WITHDRAWAL Medications at Discharge Home Medications NK 05/27/21 ABG / Lab / Microbiology Data Result Diagrams: 05/28/21 06:05 05/29/21 06:22 Discharge Plan Admission Admit Date/Time: 05/27/21 19:05 Primary Reason for Your Visit: Alcohol withdrawal Attending Provider: Shayla Swenson Primary Care Provider: Care Physician,No Primary Discharge Orders/Prescriptions Prescriptions: No Action NK RF: 0 Referrals / Follow Up: Care Physician,No Primary [Primary Care Provider] - In 1 Week Disposition Disposition (needs filled in before D/C Order can be placed): Against Medical Advice Charges/Coding Addendum Addendum: Patient was seen and examined. I agree with the above note by Pippa Stewart NP. 51 y/o female with PMHx of alcohol use disorder who presented requesting medical stabilisation from alcohol. She was monitored on the phenobarbital withdrawal protocol. Patient continued to improve. No acute events. She however signed out against medical advice . Visit Charges Inpatient E&M: 06817 Disch Hosp
== END 2021-05-29 14:44 | disposition left against medical advice (07) | DRG 770 ==
LOC: ED 19:15 → MS3 19:56
PROVIDERS: Nurse Practitioner Family; Admitting Provider Family Medicine; Emergency Provider Emergency Medicine; Visit Provider Internal Medicine
DX: F10.230 Alcohol dependence with withdrawal, uncomplicated (principal); Z53.29 Procedure and treatment not carried out because of patient's decision for other reasons; Z23 Encounter for immunization; I10 Essential (primary) hypertension; E87.6 Hypokalemia; E83.42 Hypomagnesemia; F31.9 Bipolar disorder, unspecified; F41.9 Anxiety disorder, unspecified; F17.210 Nicotine dependence, cigarettes, uncomplicated; E66.9 Obesity, unspecified; Z68.33 Body mass index [BMI] 33.0-33.9, adult; Z79.899 Other long term (current) drug therapy; Z98.84 Bariatric surgery status
CPT/HCPCS: 36415; 80053; 80307; 82077; 83735; 84100; 85025; 85610; 99284; 99406; J7120; 90686; A4216